=== PATIENT | female | born 1940 | race Caucasian/White ===

== ENCOUNTER 2017-03-21 13:19 | Inpatient (IN) | payer MEDICARE, OTHER ==
--- NOTE | 2017-03-21 13:41 | ED Physician Chart ---
ED Chief Complaint/HPI - Patient Information Date Seen:: 03/21/17 Time Seen:: 13:25 Chief Complaint:: altered level consciousness History of Present Illness:: Patient's had lethargy, cough, congestion, anorexia for the last 4 days. Her temperature was 100.3 4 days ago. Patient was hospitalized in February for pneumonia. Patient had resection of thoracic spine metastases from her lung carcinoma on January 17 and March 04, 2017. Lung carcinoma with bone metastases was diagnosed 12/11/2016. Allergies:: Allergies Allergy/AdvReac Type Severity Reaction Status Date / Time ibuprofen AdvReac Verified 03/21/17 13:27 Penicillins [PCN] AdvReac Verified 03/21/17 13:27 Historian:: Family Member Review:: Nurse's Note Reviewed, Transfer documents Reviewed ED Review of Systems - Review of Systems General/Constitutional: Fever Skin: No skin lesions Head: No headache Eyes: No loss of vision ENT: No earache Neck: No stiffness Cardio Vascular: No chest pain Pulmonary: No wheezing GI: No nausea, No vomiting, No diarrhea Musculoskeletal: Back pain Endocrine: No polyuria, No polydipsia Psychiatric: No prior psych history Hematopoietic: No bruising Allergic/Immuno: No urticaria ED Past Medical History - Past Medical History Past Medical History: Asthma/COPD, Other (rheumatoid arthritis) Family History: HTN Social History: No Alcohol, Other (patient quit smoking 20-25 years ago) Surgical History: other (see history) Psychiatricy History: None Medication: Reviewed ED Physical Exam - Physical Examination Other Gen/Cons comments:: Chronically ill-appearing; lethargic; barely verbal Head: Atraumatic Eyes: Lids, conjuctiva normal, PERRL Other Skin comments:: 3.5 out of 4 pitting edema dorsum of both hands; 2 out of 4 pretibial pitting edema; hypopigmentation skin lower legs ENMT: External ears, nose nl, Lips, teeth, gums nl Neck: No nuchal rigidity Respiratory: Nl effort/Exclusion, Clear to Auscultation Cardio Vascular: RRR, No murmur, gallop, rubs, NL S1 S2 GI: No tenderness/rebounding/guarding, No organomegaly, No hernia Other Extremities comments:: see under skin Neuro/Psych: No focal deficits ED Septic Shock - . Is Septic Shock (SBP<90, OR Lactate>4 mmol\L) present?: No
[2017-03-21 13:50] LABS: % BASOPHILS 0.5 % (0.0-2.0); % EOSINOPHILS 6.6 % (0.0-5.0); % LYMPHOCYTES 12.6 % (20.0-50.0); % MONOCYTES 9.1 % (2.0-10.0); % NEUTROPHILS 71.2 % (40.0-80.0); EOSINOPHILE ABSOLUTE 0.4 Th/cmm (0.1-0.4); HEMATOCRIT 30.6 % (41.0-60); LYMPHOCYTE ABSOLUTE 0.8 Th/cmm (1.5-3.0); MEAN CELL VOLUME 81.3 fl (81-100); MEAN CORPUSCULAR HEMOGLOBIN 26.7 pg (27.0-31.0); MEAN CORPUSCULAR HGB CONC 32.8 pg (28.0-36.0); MEAN PLATELET VOLUME 5.4 fl; MONOCYTE ABSOLUTE 0.5 Th/cmm (0.3-1.0); NEUTROPHILE ABSOLUTE 4.3 Th/cmm (1.8-8.0); PLATELET COUNT 270 Th/cmm (150-400); RED BLOOD COUNT 3.76 Mil/cmm (3.80-5.20); RED CELL DISTRIBUTION WIDTH 14.7 % (11.5-20.0)
[2017-03-21 14:23] LABS: ALBUMIN 2.8 gm/dL (3.7-5.3); ALKALINE PHOSPHATASE 88 U/L (34-104); BILIRUBIN,TOTAL 0.6 mg/dL (0.3-1.0); BUN - UREA NITROGEN 22 mg/dL (7-25); CHLORIDE 99 mEq/L (98-107); CREATININE - SERUM 0.9 mg/dL (0.6-1.2); GLUCOSE 92 mg/dL (70-105); SGOT 21 U/L (13-39); SGPT/ALT 9 U/L (7-52); SODIUM SERUM 136 mEq/L (136-145); TOTAL PROTEIN,SERUM 5.7 gm/dL (6.0-8.3)
--- NOTE | 2017-03-21 14:28 | Diagnostic Imaging Report ---
CHEST X-RAY: AP view INDICATION: Pneumonia COMPARISON: None FINDINGS: Exam is limited due to patient positioning. Postsurgical changes are noted including evidence of multilevel thoracic spinal fixation. Suboptimal lung volume seen with small effusions and left suprahilar density. Bibasal atelectatic changes are noted. Degenerative changes of the spine are noted. IMPRESSION: Left suprahilar density is noted which may be due to atelectasis infiltrate or other mass lesions. A follow-up chest x-ray with improved positioning or CT chest is recommended for further assessment Chronic changes are seen with atelectatic changes of the lung bases. Diffuse postsurgical changes of the thoracic spine.
--- NOTE | 2017-03-21 14:31 | Diagnostic Imaging Report ---
Head CT without intravenous contrast Indication: Altered level of consciousness Comparison: None Technique: Axial images were obtained from the vertex to the skull base without IV contrast. Coronal reconstructions were made. Total DLP: 729, [id number] FINDINGS: Images of the brain obtained without contrast demonstrate no acute hemorrhage. No mass lesions identified. The ventricles and basal cisterns are patent. Atrophy is noted. The negrete-white matter differentiation is preserved. There is no mass effect or midline shift. No skull fractures identified. No soft tissue swelling. There is diffuse mucosal thickening in the paranasal sinuses. IMPRESSION: No acute intracranial abnormality. Atrophy Diffuse mucosal thickening of the paranasal sinuses.
[2017-03-21] MEDS ORDERED: Potassium Chloride 20 mEq ER Tab PO ONE (15:40)
[2017-03-21 15:41] LABS: CALCIUM SERUM 16.8 mg/dL (8.6-10.3)
[2017-03-21] MEDS ORDERED: Potassium Chloride Elixir 20 mEq /15 mL UDC ONE (16:41)
[2017-03-21] MEDS ORDERED: guaiFENesin 200 MG/10 ML UDC PO PRN (17:25)
[2017-03-21] MEDS ORDERED: Ipratropium Neb 0.5 mg/2.5 mL UD IH PRN (17:25)
[2017-03-21] MEDS ORDERED: D5-0.45NS 1,000 ML IV SCH (17:30)
[2017-03-21] MEDS ORDERED: fentaNYL 50 mcg/hr Tdm Patch TD SCH (17:30)
[2017-03-21] MEDS ORDERED: Pamidronate 90 MG in Sodium Chloride 0.9% 250 ML IV ONE (17:30)
[2017-03-21] MEDS ORDERED: Albuterol/Ipratropium Neb 3 ML AERS HHN SCH (19:30)
[2017-03-21] MEDS: Sodium Chloride 0.9% 1,000 ML IV SCH (21:59)
[2017-03-21] MEDS: INSULIN ASPART, RECOMBINANT 100 UNITS/ML SUBQ SCH (22:31)
[2017-03-21] MEDS: Levofloxacin 500mg/100mL 500 MG/100 ML BAG IV SCH (23:19)
[2017-03-22 01:27] VITALS: BP 151/79
[2017-03-22 03:33] LABS: URINE MICROSCOPIC INDICATED? YES; URINE SOURCE FOLEY PORT
[2017-03-22 03:42] LABS: URINE BILIRUBIN NEGATIVE (NEGATIVE); URINE BLOOD SMALL (NEGATIVE); URINE GLUCOSE (UA) NEGATIVE (NEGATIVE); URINE KETONE NEGATIVE (NEGATIVE); URINE LEUKOCYTE ESTERASE TRACE (NEGATIVE); URINE NITRATE NEGATIVE (NEGATIVE); URINE PH 6.5 (4.6 - 8.0); URINE PROTEIN NEGATIVE (NEGATIVE); URINE UROBILINOGEN 0.2 E.U./dL (0.2 - 1.0)
[2017-03-22 04:30] LABS: URINE CLARITY CLEAR (CLEAR); URINE COLOR YELLOW
[2017-03-22 04:33] LABS: URINE BACTERIA FEW /hpf (NONE SEEN); URINE EPITHELIAL CELLS MODERATE /lpf (FEW); URINE YEAST MODERATE /hpf (NONE SEEN)
[2017-03-22] MEDS: Hydrocodone/APAP 5mg/325mg Tab PO PRN (06:30)
[2017-03-22] MEDS: INSULIN ASPART, RECOMBINANT 100 UNITS/ML SUBQ SCH ×4 (06:42→20:45)
[2017-03-22 07:11] LABS: % BASOPHILS 1.8 % (0.0-2.0); % EOSINOPHILS 5.9 % (0.0-5.0); % LYMPHOCYTES 14.5 % (20.0-50.0); % MONOCYTES 10.9 % (2.0-10.0); % NEUTROPHILS 66.9 % (40.0-80.0); BASOPHILE ABSOLUTE 0.1 Th/cumm (0-0.2); EOSINOPHILE ABSOLUTE 0.3 Th/cmm (0.1-0.4); HEMOGLOBIN 8.4 gm/dL (12-16); LYMPHOCYTE ABSOLUTE 0.8 Th/cmm (1.5-3.0); MEAN CELL VOLUME 82.2 fl (81-100); MEAN CORPUSCULAR HEMOGLOBIN 27.3 pg (27.0-31.0); MEAN CORPUSCULAR HGB CONC 33.2 pg (28.0-36.0); MEAN PLATELET VOLUME 6.8 fl; MONOCYTE ABSOLUTE 0.6 Th/cmm (0.3-1.0); NEUTROPHILE ABSOLUTE 3.9 Th/cmm (1.8-8.0); RED BLOOD COUNT 3.08 Mil/cmm (3.80-5.20); RED CELL DISTRIBUTION WIDTH 15.1 % (11.5-20.0); WHITE BLOOD COUNT 5.7 Th/cmm (4.8-10.8)
[2017-03-22 07:17] LABS: HEMATOCRIT 25.3 % (41.0-60); PLATELET COUNT 198 Th/cmm (150-400)
[2017-03-22] MEDS: Albuterol/Ipratropium Neb 3 ML AERS HHN SCH ×4 (07:31→19:04)
[2017-03-22] MEDS: Budesonide 0.5 Mg/2 mL Ud HHN SCH ×2 (07:31→19:13)
--- NOTE | 2017-03-22 08:22 | Diagnostic Imaging Report ---
CT scan of the chest without contrast HISTORY: Mass. Total DLP equals 285 CTDI equals 8.0 Axial sections were obtained from the base of the skull to the vertex. Exam is somewhat limited due to artifact associated with metallic orthopedic hardware traversing the thoracic spine. The heart is enlarged. There are small bilateral pleural effusions. Pulmonary parenchymal density noted within the right left lower lobe regions suggestion of volume loss consistent with atelectasis and possibly consolidation. Calcified bronchial jane noted. There is obscuration of the left lower lobe bronchus. There is congestion of an approximate 3.3 cm irregular mass within the left upper lobe. Malignancy cannot be excluded. Follow-up needed. IMPRESSION: 1. Suggestion of an approximate 3.3 cm mass within the left upper lobe. Neoplasm cannot be excluded. 2. Cardiomegaly along with small bilateral pleural effusions. A degree of congestive heart failure cannot be excluded. 3. Bilateral lower lobe pulmonary parenchymal changes consistent with consolidation and/or atelectasis. Obscuration of the left lower lobe bronchus. 4. Extensive surgical changes through the thoracic spine.
[2017-03-22 08:59] LABS: ALBUMIN 2.4 gm/dL (3.7-5.3); ALKALINE PHOSPHATASE 68 U/L (34-104); ANION GAP 5.3 (7.0-16.0); BILIRUBIN,TOTAL 0.4 mg/dL (0.3-1.0); BUN - UREA NITROGEN 22 mg/dL (7-25); CARBON DIOXIDE 31.9 mEq/L (21.0-31.0); CHLORIDE 104 mEq/L (98-107); CREATININE - SERUM 0.8 mg/dL (0.6-1.2); GLUCOSE 81 mg/dL (70-105); MAGNESIUM 1.6 mg/dL (1.9-2.7); PHOSPHOROUS 3.1 mg/dL (2.5-5.0); POTASSIUM SERUM 3.2 mEq/L (3.5-5.1); SGOT 18 U/L (13-39); SGPT/ALT 6 U/L (7-52); SODIUM SERUM 138 mEq/L (136-145); TOTAL PROTEIN,SERUM 4.9 gm/dL (6.0-8.3)
[2017-03-22] MEDS ORDERED: Pantoprazole 40 mg EC Tab PO SCH (09:00)
[2017-03-22] MEDS ORDERED: Non-Formulary Item 1 EA (Apixaban [Eliquis] 5 MG) PO SCH (09:00)
[2017-03-22 09:19] LABS: ALLEN TEST YES; pH 7.47 (7.35-7.45)
[2017-03-22] MEDS: Sodium Chloride 0.9% 1,000 ML IV SCH (09:26)
[2017-03-22] MEDS: Multivitamin w/ Minerals Tab PO SCH (09:26)
[2017-03-22] MEDS: Ferrous Sulfate 325 MG TAB PO SCH (09:26)
[2017-03-22] MEDS: Enoxaparin 40 mg/0.4 mL 0.4mL Syr SUBQ SCH (11:21)
[2017-03-22] MEDS ORDERED: Pamidronate 90 MG in Sodium Chloride 0.9% 250 ML IV ONE (13:00)
[2017-03-22] MEDS ORDERED: Mag Sulfate 2gm/50mL Premix 2 GM/50 ML BAG IV ONE (14:00)
--- NOTE | 2017-03-22 14:19 | Internal Medicine Prog Note ---
Internal Medicine Subjective - Subjective Service Date: 03/22/17 ([facility] [id number]) Internal Medicine Objective - Results Result Diagrams: 03/22/17 05:20 03/22/17 05:20 Recent Labs: Laboratory Last Values WBC 5.7 Th/cmm (4.8-10.8) 03/22/17 05:20 RBC 3.08 Mil/cmm (3.80-5.20) L 03/22/17 05:20 Hgb 8.4 gm/dL (12-16) L 03/22/17 05:20 Hct 25.3 % (41.0-60) L D 03/22/17 05:20 MCV 82.2 fl (81-100) 03/22/17 05:20 MCH 27.3 pg (27.0-31.0) 03/22/17 05:20 MCHC Differential 33.2 pg (28.0-36.0) 03/22/17 05:20 RDW 15.1 % (11.5-20.0) 03/22/17 05:20 Plt Count 198 Th/cmm (150-400) D 03/22/17 05:20 MPV 6.8 fl 03/22/17 05:20 Neutrophils % 66.9 % (40.0-80.0) 03/22/17 05:20 Lymphocytes % 14.5 % (20.0-50.0) L 03/22/17 05:20 Monocytes % 10.9 % (2.0-10.0) H 03/22/17 05:20 Eosinophils % 5.9 % (0.0-5.0) H 03/22/17 05:20 Basophils % 1.8 % (0.0-2.0) 03/22/17 05:20 Specimen Source Arterial 03/22/17 09:10 Sample Site Right Radial 03/22/17 09:10 pH 7.47 (7.35-7.45) H 03/22/17 09:10 pCO2 46.0 mmHg (35.0-45.0) H 03/22/17 09:10 pO2 66.0 mmHg (80.0-100.0) L 03/22/17 09:10 HCO3 31.6 mEq/L (20.0-26.0) H 03/22/17 09:10 Base Excess 8.7 mEq/L (-3.0-3.0) H 03/22/17 09:10 O2 Saturation 94.0 % (92.0-100.0) 03/22/17 09:10 Dennis Test YES 03/22/17 09:10 Vent Rate NA 03/22/17 09:10 Inspired O2 35 03/22/17 09:10 Tidal Volume NA 03/22/17 09:10 PEEP NA 03/22/17 09:10 Pressure (ins/psv/peep) NA 03/22/17 09:10 Critical Value E.NATHAN 03/22/17 09:10 Sodium 138 mEq/L (136-145) 03/22/17 05:20 Potassium 3.2 mEq/L (3.5-5.1) L 03/22/17 05:20 Chloride 104 mEq/L (98-107) 03/22/17 05:20 Carbon Dioxide 31.9 mEq/L (21.0-31.0) H 03/22/17 05:20 Anion Gap 5.3 (7.0-16.0) L 03/22/17 05:20 BUN 22 mg/dL (7-25) 03/22/17 05:20 Creatinine 0.8 mg/dL (0.6-1.2) 03/22/17 05:20 Est GFR ( Amer) TNP 03/22/17 05:20 Est GFR (Non-Af Amer) TNP 03/22/17 05:20 BUN/Creatinine Ratio 27.5 03/22/17 05:20 Glucose 81 mg/dL (70-105) 03/22/17 05:20 POC Glucose 83 MG/DL (70 - 105) 03/22/17 13:01 Calcium 16.0 mg/dL (8.6-10.3) H* 03/22/17 05:20 Phosphorus 3.1 mg/dL (2.5-5.0) 03/22/17 05:20 Magnesium 1.6 mg/dL (1.9-2.7) L 03/22/17 05:20 Total Bilirubin 0.4 mg/dL (0.3-1.0) 03/22/17 05:20 Direct Bilirubin 0.10 mg/dL (0.0-0.2) 03/22/17 05:20 AST 18 U/L (13-39) 03/22/17 05:20 ALT 6 U/L (7-52) L 03/22/17 05:20 Alkaline Phosphatase 68 U/L (34-104) 03/22/17 05:20 Ammonia 57 umol/L (16-53) H 03/22/17 05:20 B-Natriuretic Peptide 181.0 pg/mL (5.0-100.0) H 03/22/17 05:20 Total Protein 4.9 gm/dL (6.0-8.3) L 03/22/17 05:20 Albumin 2.4 gm/dL (3.7-5.3) L 03/22/17 05:20 Globulin 2.5 gm/dL 03/22/17 05:20 Albumin/Globulin Ratio 1.0 (1.0-1.8) 03/22/17 05:20 TSH 2.14 uIU/ml (0.34-5.60) 03/22/17 05:20 Urine Source [place] 03/22/17 03:20 Urine Color YELLOW 03/22/17 03:20 Urine Clarity CLEAR (CLEAR) 03/22/17 03:20 Urine pH 6.5 (4.6 - 8.0) 03/22/17 03:20 Ur Specific [place] 1.010 (1.005-1.030) 03/22/17 03:20 Urine Protein NEGATIVE mg/dL (NEGATIVE) 03/22/17 03:20 Urine Glucose (UA) NEGATIVE mg/dL (NEGATIVE) 03/22/17 03:20 Urine Ketones NEGATIVE mg/dL (NEGATIVE) 03/22/17 03:20 Urine Blood SMALL (NEGATIVE) H 03/22/17 03:20 Urine Nitrate NEGATIVE (NEGATIVE) 03/22/17 03:20 Urine Bilirubin NEGATIVE (NEGATIVE) 03/22/17 03:20 Urine Urobilinogen 0.2 E.U./dL (0.2 - 1.0) 03/22/17 03:20 Ur Leukocyte Esterase TRACE (NEGATIVE) H 03/22/17 03:20 Urine RBC 2-5 /hpf (0-5) 03/22/17 03:20 Urine WBC 2-5 /hpf (0-5) 03/22/17 03:20 Ur Epithelial Cells MODERATE /lpf (FEW) 03/22/17 03:20 Urine Bacteria FEW /hpf (NONE SEEN) 03/22/17 03:20 Urine Yeast MODERATE /hpf (NONE SEEN) H 03/22/17 03:20 - Physical Exam Vitals and I&O: Vital Signs Temp 98.7 F 03/22/17 01:55 Pulse 70 03/22/17 13:45 Resp 18 03/22/17 13:45 BP 147/70 03/22/17 10:26 Pulse Ox 95 03/22/17 13:45 Intake & Output 03/21/17 03/22/17 03/22/17 18:59 06:59 18:59 Intake Total 50 1050 Output Total 1150 Balance 50 -100 Weight (lbs) 140 lb 140 lb Intake: Intake, IV Amount 50 1050 Cefepime 1 gm In Dextrose 50 50 5% 50 ml @ 100 mls/hr IV Q12H [facility] Rx#:[id number] Sodium Chloride 0.9% 1, 1000 000 ml @ 125 mls/hr IV . Q8H [facility] Rx#:[id number] Output: Urine 1150 Other: # Bowel Movements 0 Active Medications: Current Medications Acetaminophen (Tylenol) 650 mg PO Q4H PRN PRN Reason: Pain Or Fever above 101 Stop: 05/20/17 17:24 Acetaminophen/Hydrocodone Bitart ([place] 5mg/325mg) 1 tab PO Q4H PRN PRN Reason: Pain (Severe) Stop: 05/20/17 17:24 Last Admin: 03/22/17 06:30 Dose: 1 tab Albuterol/Ipratropium (Duoneb Neb) 3 ml HHN [id number] [facility] Stop: 05/21/17 06:59 Last Admin: 03/22/17 13:43 Dose: 3 ml Budesonide (Pulmicort) 0.5 mg HHN BIDRT [facility] Stop: 05/21/17 06:59 Last Admin: 03/22/17 07:31 Dose: 0.5 mg Docusate Sodium (Colace) 250 mg PO DAILY [facility] Stop: 05/21/17 08:59 Last Admin: 03/22/17 09:26 Dose: 250 mg Enoxaparin Sodium (Lovenox) 40 mg SUBQ DAILY [facility] Stop: 05/21/17 08:59 Last Admin: 03/22/17 11:21 Dose: 40 mg Fentanyl (Duragesic 50 Mcg/Hr Tdm Patch) 1 patch TD Q72HR [facility] PRN Reason: Protocol Stop: 05/20/17 17:29 Ferrous Sulfate (Iron) 325 mg PO DAILY [facility] Stop: 05/21/17 08:59 Last Admin: 03/22/17 09:26 Dose: 325 mg Gabapentin (Neurontin) 400 mg PO TID [facility] Stop: 05/20/17 20:59 Last Admin: 03/22/17 10:00 Dose: 400 mg Guaifenesin (Robitussin) 200 mg PO Q4HR PRN PRN Reason: Cough or Congestion Stop: 05/20/17 17:24 Cefepime HCl 1 gm/ Dextrose 50 mls @ 100 mls/hr IV Q12H [facility] Stop: 05/20/17 17:29 Last Infusion: 03/22/17 11:25 Dose: Infused Levofloxacin (Levaquin Pb) 500 mg in 100 mls @ 100 mls/hr IV Q24HR [facility] Stop: 05/20/17 19:29 Last Admin: 03/21/17 23:19 Dose: 100 mls/hr Sodium Chloride (Nacl 0.9%) 1,000 mls @ 125 mls/hr IV .Q8H [facility] Stop: 05/20/17 20:17 Last Admin: 03/22/17 09:26 Dose: 125 mls/hr Pamidronate Disodium 90 mg/ (Sodium Chloride) 280 mls @ 62 mls/hr IV X1 ONE Stop: 03/22/17 17:30 Last Admin: 03/22/17 13:02 Dose: 62 mls/hr Potassium Chloride 40 meq/Lidocaine HCl 25 mg/ Sodium Chloride 272.5 mls @ 68 mls/hr IV X1 ONE Stop: 03/22/17 18:30 Magnesium Sulfate (Magnesium Sulfate Premix) 2 gm in 50 mls @ 25 mls/hr IV X1 ONE Stop: 03/22/17 15:59 Insulin Aspart (Novolog) 0 units SUBQ ACHS [facility] PRN Reason: Protocol Stop: 05/20/17 20:59 Last Admin: 03/22/17 13:01 Dose: Not Given Ipratropium [place] (Atrovent Neb 0.5mg/2.5ml) 0.5 mg IH Q2HRT PRN PRN Reason: Shortness of Breath or Wheeze Stop: 05/20/17 17:24 Ondansetron HCl (Zofran) 4 mg IV Q8H PRN PRN Reason: Nausea / Vomiting Stop: 05/20/17 17:24 Pantoprazole Sodium (Protonix) 40 mg PO DAILY [facility] Stop: 05/21/17 08:59 Last Admin: 03/22/17 09:26 Dose: 40 mg Senna (Senna) 8.6 mg PO DAILY [facility] Stop: 05/21/17 08:59 Last Admin: 03/22/17 09:26 Dose: 8.6 mg Internal Medicine Assmt/Plan - Assessment Assessment: Acute respiratory failure possible sepsis Lung CA hypercalcemia severe protein nancy maltnutrition dnr status
[2017-03-22] MEDS ORDERED: Potassium Chloride 40 MEQ, Lidocaine 1% 20mL Vial 25 MG in Sodium Chloride 0.9% 250 ML IV ONE (14:30)
--- NOTE | 2017-03-22 14:47 | Consultation ---
DATE OF CONSULTATION: HEMATOLOGY AND ONCOLOGY CONSULTATION REFERRED BY: Cecil Lopes D.O. REASON FOR CONSULTATION: Lung cancer, metastatic and hypercalcemia. HISTORY OF PRESENT ILLNESS: The patient is a 76-year-old female with metastatic lung cancer to the spine. Apparently, she presented initially in 11/2016 with severe back pain and found to have spinal compression and underwent laminectomy at level T5 and given radiation therapy, which was interrupted because of severe pain. The patient was intubated after that and extubated on 02/27/2017. She is presenting to the hospital with altered mental status and found to have severe hypercalcemia, calcium 16. Pamidronate was ordered, but it was not given because it was not available. I had a discussion with nurse and pharmacy this morning and the medication was reordered again. The patient had cholangiocarcinoma with spinal metastasis and the tumor was resected and they re-grew after that. Apparently, the patient received one chemotherapy about 2 months ago, per the patient's friend at bedside and the name of chemotherapy is unknown. The patient was discharged from the [facility] on 03/06/2017 on Eliquis 5 mg, gabapentin, Cymbalta, omeprazole, lactulose, baclofen, Lidoderm. CURRENT MEDICATIONS: Cefepime, clonidine, fentanyl, gabapentin, [place], ipratropium, Levaquin, pantoprazole, potassium. She is also on IV fluids 125 mL per hour. MEDICAL AND SURGICAL HISTORY: As mentioned above. PHYSICAL EXAMINATION: GENERAL: The patient is alert, unable to carry on a conversation. She is unable to swallow food. She is pooling food in her mouth and the medications. Disoriented. NECK: Supple. CHEST: Equal air entry. There is a dressing on the back. No bleeding. ABDOMEN: Soft. EXTREMITIES: Moves upper extremities spontaneously, not moving lower extremities. The muscle power on both lower extremities is decreased. Right lower extremity is 0/5 and left lower extremity is 1/5. LABORATORY DATA AND DIAGNOSTIC STUDIES: White count and platelets are normal, hemoglobin 8.4. Potassium 3.2, calcium 16, creatinine 0.8. CT scan of the chest, left upper lobe mass with extensive surgical changes in the spine. Head CT, no acute abnormalities. There are also bilateral lower lobe parenchymal changes. ASSESSMENT: 1. 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 The patient is now paraplegic. 2. Hypercalcemia of malignancy. I will obtain parathyroid hormone and I tried to order zoledronic acid, but it is not on formulary; therefore, I will proceed with pamidronate 90 mg in addition to vigorous hydration and Decadron. I will also start deep vein thrombosis prophylaxis because of the paraplegia. The overall prognosis is very poor. I will monitor the chemistry and calcium closely. Thank you, Dr. Lopes for the opportunity to participate in the care of this interesting case. JOB# [id number]
--- NOTE | 2017-03-22 19:01 | History & Physical ---
ADMIT DATE: 03/21/2017 CHIEF COMPLAINT: ALOC. HISTORY OF PRESENT ILLNESS: This is a 76-year-old female who is a [place] [facility] resident, with a 4-day history of cough, congestion and anorexia for 4 days. The patient had a low grade fever of 100.3. The patient was recently hospitalized in February for pneumonia. The patient recently also had a resection of her thoracic spine, metastasis from her lung carcinoma on 01/17/2017 and 03/04/2017. PAST MEDICAL HISTORY: Asthma, COPD, rheumatoid arthritis, lung carcinoma with bone metastasis diagnosed on 12/11/2016. SURGICAL HISTORY: Resection of thoracic spine, metastasis from lung carcinoma. SOCIAL HISTORY: The patient is a former smoker. ALLERGIES: IBUPROFEN, PENICILLIN. REVIEW OF SYSTEMS: GENERAL: Denies fevers, chills. CARDIOVASCULAR: Denies chest pain. RESPIRATORY: Denies shortness of breath. GASTROINTESTINAL: Denies nausea, vomiting, abdominal pain. GENITOURINARY: Denies increased frequency or dysuria. NEUROLOGIC: No headaches, seizures or syncope. PSYCHIATRIC: As stated above. EXTREMITIES: No leg pain or swelling. All other systems are reviewed and are negative. PHYSICAL EXAMINATION: GENERAL: The patient appears chronically ill, awake, in no apparent distress. VITAL SIGNS: Temperature 98.7, heart rate 90, blood pressure 151/79, respiration 18, O2 95%. HEENT: Head, normocephalic, atraumatic. NECK: Supple. No mass. LUNGS: Few rhonchi. HEART: Regular rate and rhythm. ABDOMEN: Soft, nontender. LABORATORY DATA: WBC 5.7, H and H 8.4 and 25.3, platelet of 198. Sodium 138, potassium 3.2, chloride 104, BUN 22, creatinine 0.8. Calcium 6.0. Ammonia level 57. Albumin of 2.4. The patient had a chest x-ray done and the impression is left suprahilar density is noted which may be due to atelectasis, infiltrate or other mass lesions. A followup chest x-ray with improved positioning or CT chest is recommended for further assessment. Chronic changes are seen with atelectatic changes in the lung bases, diffuse postsurgical changes of the thoracic spine. A CT of the head was also done and the impression is no acute intracranial abnormality, atrophy, diffuse mucosal thickening of the paranasal sinuses. Also, CT of the chest was also done and the impression is suggestion of an approximate 3.3 cm mass within the left upper lobe, neoplasm cannot be excluded, cardiomegaly along with small bilateral pleural effusions with degrees of CHF cannot be excluded. Bilateral lower lobe pulmonary will changes consistent with consolidation and/or atelectasis. Obscuration of the left lower bronchus. Extensive surgical changes to the thoracic spine. ASSESSMENT: Acute respiratory failure, possible sepsis, lung cancer, hypercalcemia, severe protein-calorie malnutrition, anemia. PLAN: The patient to be admitted to the Telemetry unit. We will get Pulmonology as well as pbx operator on the case. We will get wound consultation as well. Keep patient on IV fluids for hydration also, IV antibiotics of Maxipime as well as supplemental oxygen as needed, as well as bronchodilators. We will continue to monitor this patient. JOB# [id number]
--- NOTE | 2017-03-22 21:38 | Consultation ---
DATE OF CONSULTATION: 03/21/2017 PULMONARY AND CRITICAL CARE CONSULTATION NOTE REASON FOR CONSULTATION: The patient with chronic lung condition with altered state of mind. CONSULT NOTE: This is a 76-year-old female who was diagnosed to have lung cancer in 3-4 months ago. Subsequently, was treated and apparently the patient was at [facility]. Subsequently, the patient had 2 times decompression surgical history presumably spread from cancer into the supine as back as couple of weeks ago. Subsequently, the patient was at rehab at [place] and since last 3-4 days the patient has been quite obtunded, not able to eat, spitting it out, and continues to have significant altered state of mind. Hence, the patient was basically admitted and brought to the Emergency Room for further care and necessary treatment. The patient is barely arousable, very minimal opening his eyes to verbal stimulation, but otherwise no communication could be done. Most of the communication is obtained by talking to her grandson who gives much of her history. The patient has a history of very heavy smoking, was diagnosed to have a lung carcinoma by needle biopsy; subsequently was treated, but also at the same time x 2 had spinal cord compression, once it was at [facility] and also she was at [facility] a couple of weeks ago where she had some decompression, surgery was done, and was in the [facility] for further care and necessary treatment. The patient's other history at this particular time is not available. The patient has a history of COPD, otherwise history of spine metastasis from the lung, exact type is not clear; and also history of previous asthmatic bronchitis. Smoking history is very heavy could not be quantified, history of rheumatoid arthritis, and otherwise unremarkable. PHYSICAL EXAMINATION: GENERAL: This is an elderly looking female, barely opens eyes, not in acute respiratory distress. VITAL SIGNS: The patient's recorded vitals, temperature is 99, pulse is 98, blood pressure 149/63, respirations 19, and saturation 90% on 3 liters per minute. HEENT: Examination of the head is essentially unremarkable. Pupils appear to be equal and reacting to light. Conjunctivae are slightly pallor. Oral cavity shows dry mouth with poor dental hygiene and oral cavity is small oropharyngeal opening. NECK: Short. No nodes in the neck could be palpated. CHEST: Shows diminished air entry with occasional rhonchi. HEART: Regular. ABDOMEN: Soft, nontender. EXTREMITIES: Shows slight trace of peripheral edema. LABORATORY DATA: The patient's white count is 6.0 and hemoglobin is 10 grams. Electrolytes are okay except for calcium is 16.8 and albumin is 2.8. ASSESSMENT AND IMPRESSION: 1. The patient has a carcinoma of the lung with metastasis to multiple areas, though type is not clear-cut with x 2 times compression of the spinal cord done. 2. Significant hypercalcemia, probably due to above. 3. Underlying history of chronic obstructive pulmonary disease. 4. History of severe anemia. PLANS AND SUGGESTIONS: Discussed with the patient's family at length. Consideration for no code should be done. We will go ahead and replaced with sodium chloride IV and also we will got empiric antibiotic. We will give steroid to bring the calcium down and see how she does in the next 24-48 hours. Family understands her condition and grave situation and a terminal situation. We will discuss with the family members to get ____ that was highly recommended and we will see how she does in the next 24 hours and go from there. JOB# [id number]
[2017-03-23] MEDS: Levofloxacin 500mg/100mL 500 MG/100 ML BAG IV SCH (00:48)
[2017-03-23] MEDS: Sodium Chloride 0.9% 1,000 ML IV SCH ×2 (04:59→12:30)
[2017-03-23 06:31] LABS: % BASOPHILS 0.6 % (0.0-2.0); % LYMPHOCYTES 10.9 % (20.0-50.0); % MONOCYTES 8.7 % (2.0-10.0); % NEUTROPHILS 77.8 % (40.0-80.0); EOSINOPHILE ABSOLUTE 0.1 Th/cmm (0.1-0.4); HEMATOCRIT 27.7 % (41.0-60); LYMPHOCYTE ABSOLUTE 0.7 Th/cmm (1.5-3.0); MEAN CELL VOLUME 81.6 fl (81-100); MEAN CORPUSCULAR HEMOGLOBIN 26.6 pg (27.0-31.0); MEAN CORPUSCULAR HGB CONC 32.6 pg (28.0-36.0); MEAN PLATELET VOLUME 6.3 fl; MONOCYTE ABSOLUTE 0.6 Th/cmm (0.3-1.0); NEUTROPHILE ABSOLUTE 5.2 Th/cmm (1.8-8.0); PLATELET COUNT 228 Th/cmm (150-400); WHITE BLOOD COUNT 6.6 Th/cmm (4.8-10.8)
[2017-03-23 06:51] LABS: ANION GAP 8.2 (7.0-16.0); BUN - UREA NITROGEN 23 mg/dL (7-25); CHLORIDE 108 mEq/L (98-107); CREATININE - SERUM 0.8 mg/dL (0.6-1.2); GLUCOSE 105 mg/dL (70-105); POTASSIUM SERUM 3.2 mEq/L (3.5-5.1); SODIUM SERUM 142 mEq/L (136-145)
[2017-03-23] MEDS: INSULIN ASPART, RECOMBINANT 100 UNITS/ML SUBQ SCH ×4 (07:17→21:51)
[2017-03-23 07:20] LABS: CALCIUM SERUM 16.1 mg/dL (8.6-10.3)
[2017-03-23] MEDS: Albuterol/Ipratropium Neb 3 ML AERS HHN SCH ×4 (07:58→19:18)
[2017-03-23] MEDS: Budesonide 0.5 Mg/2 mL Ud HHN SCH ×2 (07:58→19:18)
[2017-03-23] MEDS ORDERED: Potassium Chloride 40 MEQ, Lidocaine 1% 20mL Vial 25 MG in Sodium Chloride 0.9% 250 ML IV ONE (08:44)
[2017-03-23] MEDS: Multivitamin w/ Minerals Tab PO SCH (09:04)
[2017-03-23] MEDS: Ferrous Sulfate 325 MG TAB PO SCH (09:04)
[2017-03-23] MEDS: Enoxaparin 40 mg/0.4 mL 0.4mL Syr SUBQ SCH (09:04)
[2017-03-23] MEDS ORDERED: fentaNYL 50 mcg/hr Tdm Patch TD SCH ×2 (10:15→10:30)
--- NOTE | 2017-03-23 12:06 | Internal Medicine Prog Note ---
Internal Medicine Subjective - Subjective Service Date: 03/23/17 Patient seen and examined:: with staff Patient is:: awake Patient Complaints of:: congestion Per staff patient has:: poor appetite, poor oral intake Internal Medicine Objective - Results Result Diagrams: 03/23/17 06:05 03/23/17 06:05 Recent Labs: Laboratory Last Values WBC 6.6 Th/cmm (4.8-10.8) 03/23/17 06:05 RBC 3.40 Mil/cmm (3.80-5.20) L 03/23/17 06:05 Hgb 9.0 gm/dL (12-16) L 03/23/17 06:05 Hct 27.7 % (41.0-60) L 03/23/17 06:05 MCV 81.6 fl (81-100) 03/23/17 06:05 MCH 26.6 pg (27.0-31.0) L 03/23/17 06:05 MCHC Differential 32.6 pg (28.0-36.0) 03/23/17 06:05 RDW 15.0 % (11.5-20.0) 03/23/17 06:05 Plt Count 228 Th/cmm (150-400) 03/23/17 06:05 MPV 6.3 fl 03/23/17 06:05 Neutrophils % 77.8 % (40.0-80.0) 03/23/17 06:05 Lymphocytes % 10.9 % (20.0-50.0) L 03/23/17 06:05 Monocytes % 8.7 % (2.0-10.0) 03/23/17 06:05 Eosinophils % 2.0 % (0.0-5.0) 03/23/17 06:05 Basophils % 0.6 % (0.0-2.0) 03/23/17 06:05 Specimen Source Arterial 03/22/17 09:10 Sample Site Right Radial 03/22/17 09:10 pH 7.47 (7.35-7.45) H 03/22/17 09:10 pCO2 46.0 mmHg (35.0-45.0) H 03/22/17 09:10 pO2 66.0 mmHg (80.0-100.0) L 03/22/17 09:10 HCO3 31.6 mEq/L (20.0-26.0) H 03/22/17 09:10 Base Excess 8.7 mEq/L (-3.0-3.0) H 03/22/17 09:10 O2 Saturation 94.0 % (92.0-100.0) 03/22/17 09:10 Dennis Test YES 03/22/17 09:10 Vent Rate NA 03/22/17 09:10 Inspired O2 35 03/22/17 09:10 Tidal Volume NA 03/22/17 09:10 PEEP NA 03/22/17 09:10 Pressure (ins/psv/peep) NA 03/22/17 09:10 Critical Value E.NATHAN 03/22/17 09:10 Sodium 142 mEq/L (136-145) 03/23/17 06:05 Potassium 3.2 mEq/L (3.5-5.1) L 03/23/17 06:05 Chloride 108 mEq/L (98-107) H 03/23/17 06:05 Carbon Dioxide 29.0 mEq/L (21.0-31.0) 03/23/17 06:05 Anion Gap 8.2 (7.0-16.0) 03/23/17 06:05 BUN 23 mg/dL (7-25) 03/23/17 06:05 Creatinine 0.8 mg/dL (0.6-1.2) 03/23/17 06:05 Est GFR ( Amer) TNP 03/23/17 06:05 Est GFR (Non-Af Amer) TNP 03/23/17 06:05 BUN/Creatinine Ratio 28.8 03/23/17 06:05 Glucose 105 mg/dL (70-105) 03/23/17 06:05 POC Glucose 94 MG/DL (70 - 105) 03/23/17 07:11 Calcium 16.1 mg/dL (8.6-10.3) H* 03/23/17 06:05 Phosphorus 3.1 mg/dL (2.5-5.0) 03/22/17 05:20 Magnesium 1.6 mg/dL (1.9-2.7) L 03/22/17 05:20 Total Bilirubin 0.4 mg/dL (0.3-1.0) 03/22/17 05:20 Direct Bilirubin 0.10 mg/dL (0.0-0.2) 03/22/17 05:20 AST 18 U/L (13-39) 03/22/17 05:20 ALT 6 U/L (7-52) L 03/22/17 05:20 Alkaline Phosphatase 68 U/L (34-104) 03/22/17 05:20 Ammonia 57 umol/L (16-53) H 03/22/17 05:20 B-Natriuretic Peptide 181.0 pg/mL (5.0-100.0) H 03/22/17 05:20 Total Protein 4.9 gm/dL (6.0-8.3) L 03/22/17 05:20 Albumin 2.4 gm/dL (3.7-5.3) L 03/22/17 05:20 Globulin 2.5 gm/dL 03/22/17 05:20 Albumin/Globulin Ratio 1.0 (1.0-1.8) 03/22/17 05:20 TSH 2.14 uIU/ml (0.34-5.60) 03/22/17 05:20 Urine Source [place] 03/22/17 03:20 Urine Color YELLOW 03/22/17 03:20 Urine Clarity CLEAR (CLEAR) 03/22/17 03:20 Urine pH 6.5 (4.6 - 8.0) 03/22/17 03:20 Ur Specific [place] 1.010 (1.005-1.030) 03/22/17 03:20 Urine Protein NEGATIVE mg/dL (NEGATIVE) 03/22/17 03:20 Urine Glucose (UA) NEGATIVE mg/dL (NEGATIVE) 03/22/17 03:20 Urine Ketones NEGATIVE mg/dL (NEGATIVE) 03/22/17 03:20 Urine Blood SMALL (NEGATIVE) H 03/22/17 03:20 Urine Nitrate NEGATIVE (NEGATIVE) 03/22/17 03:20 Urine Bilirubin NEGATIVE (NEGATIVE) 03/22/17 03:20 Urine Urobilinogen 0.2 E.U./dL (0.2 - 1.0) 03/22/17 03:20 Ur Leukocyte Esterase TRACE (NEGATIVE) H 03/22/17 03:20 Urine RBC 2-5 /hpf (0-5) 03/22/17 03:20 Urine WBC 2-5 /hpf (0-5) 03/22/17 03:20 Ur Epithelial Cells MODERATE /lpf (FEW) 03/22/17 03:20 Urine Bacteria FEW /hpf (NONE SEEN) 03/22/17 03:20 Urine Yeast MODERATE /hpf (NONE SEEN) H 03/22/17 03:20 - Physical Exam Vitals and I&O: Vital Signs Temp 97.2 F 03/23/17 11:38 Pulse 81 03/23/17 11:38 Resp 18 03/23/17 11:38 BP 159/69 03/23/17 11:38 Pulse Ox 97 03/23/17 11:38 Intake & Output 03/22/17 03/23/17 03/23/17 18:59 06:59 18:59 Intake Total 2050 350 Output Total 1150 600 Balance 900 -250 Weight (lbs) 140 lb 140 lb 140 lb Intake: Intake, IV Amount 0 100 Cefepime 1 gm In Dextrose 50 5% 50 ml @ 100 mls/hr IV Q12H [facility] Rx#:[id number] Levofloxacin 500mg/100mL 100 500 mg In 100 ml @ 100 mls/hr IV Q24HR [facility] Rx#: [id number] Sodium Chloride 0.9% 1, 2000 000 ml @ 125 mls/hr IV . Q8H [facility] Rx#:[id number] Oral 150 Other 100 Output: Urine 1150 600 Other: # Bowel Movements 0 0 Active Medications: Current Medications Acetaminophen (Tylenol) 650 mg PO Q4H PRN PRN Reason: Pain Or Fever above 101 Stop: 05/20/17 17:24 Last Admin: 03/22/17 21:54 Dose: 650 mg Acetaminophen/Hydrocodone Bitart ([place] 5mg/325mg) 1 tab PO Q4H PRN PRN Reason: Pain (Severe) Stop: 05/20/17 17:24 Last Admin: 03/22/17 06:30 Dose: 1 tab Albuterol/Ipratropium (Duoneb Neb) 3 ml HHN [id number] [facility] Stop: 05/21/17 06:59 Last Admin: 03/23/17 07:58 Dose: 3 ml Budesonide (Pulmicort) 0.5 mg HHN BIDRT [facility] Stop: 05/21/17 06:59 Last Admin: 03/23/17 07:58 Dose: 0.5 mg Docusate Sodium (Colace) 250 mg PO DAILY [facility] Stop: 05/21/17 08:59 Last Admin: 03/23/17 09:04 Dose: 250 mg Enalaprilat (Vasotec) 1.25 mg IVP Q6HR PRN PRN Reason: SBP >180 AND UP Stop: 05/22/17 08:29 Enoxaparin Sodium (Lovenox) 40 mg SUBQ DAILY [facility] Stop: 05/21/17 08:59 Last Admin: 03/23/17 09:04 Dose: 40 mg Fentanyl (Duragesic 50 Mcg/Hr Tdm Patch) 1 patch TD Q72H [facility] Stop: 05/22/17 10:29 Last Admin: 03/23/17 10:54 Dose: 1 patch Ferrous Sulfate (Iron) 325 mg PO DAILY [facility] Stop: 05/21/17 08:59 Last Admin: 03/23/17 09:04 Dose: 325 mg Gabapentin (Neurontin) 400 mg PO TID [facility] Stop: 05/20/17 20:59 Last Admin: 03/23/17 09:04 Dose: 400 mg Guaifenesin (Robitussin) 200 mg PO Q4HR PRN PRN Reason: Cough or Congestion Stop: 05/20/17 17:24 Cefepime HCl 1 gm/ Dextrose 50 mls @ 100 mls/hr IV Q12H [facility] Stop: 05/20/17 17:29 Last Infusion: 03/22/17 11:25 Dose: Infused Levofloxacin (Levaquin Pb) 500 mg in 100 mls @ 100 mls/hr IV Q24HR [facility] Stop: 05/20/17 19:29 Last Infusion: 03/23/17 01:48 Dose: Infused Potassium Chloride 40 meq/Lidocaine HCl 25 mg/ Sodium Chloride 272.5 mls @ 68 mls/hr IV X1 ONE Stop: 03/23/17 12:44 Last Admin: 03/23/17 09:59 Dose: 68 mls/hr Sodium Chloride (Nacl 0.9%) 1,000 mls @ 50 mls/hr IV .Q20H [facility] Stop: 05/22/17 11:16 Insulin Aspart (Novolog) 0 units SUBQ ACHS [facility] PRN Reason: Protocol Stop: 05/20/17 20:59 Last Admin: 03/23/17 07:17 Dose: Not Given Ipratropium [place] (Atrovent Neb 0.5mg/2.5ml) 0.5 mg IH Q2HRT PRN PRN Reason: Shortness of Breath or Wheeze Stop: 05/20/17 17:24 Ondansetron HCl (Zofran) 4 mg IV Q8H PRN PRN Reason: Nausea / Vomiting Stop: 05/20/17 17:24 Pantoprazole Sodium (Protonix) 40 mg IVP QDAC [facility] Stop: 05/22/17 08:59 Last Admin: 03/23/17 09:59 Dose: 40 mg Senna (Senna) 8.6 mg PO DAILY [facility] Stop: 05/21/17 08:59 Last Admin: 03/23/17 09:04 Dose: 8.6 mg General: congested, alert HEENT: NC/AT, PERRLA Neck: Supple Lungs: rales, ronchi Cardiovascular: RRR, Normal S1, Normal S2, without murmur Abdomen: soft, non-tender, non-distended, positive bowel sound Neurological: alert Internal Medicine Assmt/Plan - Assessment Assessment: Acute respiratory failure possible sepsis Lung CA hypercalcemia severe protein nancy maltnutrition dnr status - Plan Plan: decrease ivf will add megace swallow eval pulmonary toileting and inhaltion treatments follow up labs in am continue current plan of care
[2017-03-23] MEDS ORDERED: KCL 20mEq/100mL Premix 20 MEQ/100 ML PIGGYBACK IV ONE (13:36)
--- NOTE | 2017-03-23 15:26 | General Progress Note ---
Subjective - Review of Systems Service Date: 03/23/17 Subjective: non communicative Objective - Results Result Diagrams: 03/23/17 06:05 03/23/17 06:05 Recent Labs: Laboratory Last Values WBC 6.6 Th/cmm (4.8-10.8) 03/23/17 06:05 RBC 3.40 Mil/cmm (3.80-5.20) L 03/23/17 06:05 Hgb 9.0 gm/dL (12-16) L 03/23/17 06:05 Hct 27.7 % (41.0-60) L 03/23/17 06:05 MCV 81.6 fl (81-100) 03/23/17 06:05 MCH 26.6 pg (27.0-31.0) L 03/23/17 06:05 MCHC Differential 32.6 pg (28.0-36.0) 03/23/17 06:05 RDW 15.0 % (11.5-20.0) 03/23/17 06:05 Plt Count 228 Th/cmm (150-400) 03/23/17 06:05 MPV 6.3 fl 03/23/17 06:05 Neutrophils % 77.8 % (40.0-80.0) 03/23/17 06:05 Lymphocytes % 10.9 % (20.0-50.0) L 03/23/17 06:05 Monocytes % 8.7 % (2.0-10.0) 03/23/17 06:05 Eosinophils % 2.0 % (0.0-5.0) 03/23/17 06:05 Basophils % 0.6 % (0.0-2.0) 03/23/17 06:05 Specimen Source Arterial 03/22/17 09:10 Sample Site Right Radial 03/22/17 09:10 pH 7.47 (7.35-7.45) H 03/22/17 09:10 pCO2 46.0 mmHg (35.0-45.0) H 03/22/17 09:10 pO2 66.0 mmHg (80.0-100.0) L 03/22/17 09:10 HCO3 31.6 mEq/L (20.0-26.0) H 03/22/17 09:10 Base Excess 8.7 mEq/L (-3.0-3.0) H 03/22/17 09:10 O2 Saturation 94.0 % (92.0-100.0) 03/22/17 09:10 Dennis Test YES 03/22/17 09:10 Vent Rate NA 03/22/17 09:10 Inspired O2 35 03/22/17 09:10 Tidal Volume NA 03/22/17 09:10 PEEP NA 03/22/17 09:10 Pressure (ins/psv/peep) NA 03/22/17 09:10 Critical Value E.NATHAN 03/22/17 09:10 Sodium 142 mEq/L (136-145) 03/23/17 06:05 Potassium 3.2 mEq/L (3.5-5.1) L 03/23/17 06:05 Chloride 108 mEq/L (98-107) H 03/23/17 06:05 Carbon Dioxide 29.0 mEq/L (21.0-31.0) 03/23/17 06:05 Anion Gap 8.2 (7.0-16.0) 03/23/17 06:05 BUN 23 mg/dL (7-25) 03/23/17 06:05 Creatinine 0.8 mg/dL (0.6-1.2) 03/23/17 06:05 Est GFR ( Amer) TNP 03/23/17 06:05 Est GFR (Non-Af Amer) TNP 03/23/17 06:05 BUN/Creatinine Ratio 28.8 03/23/17 06:05 Glucose 105 mg/dL (70-105) 03/23/17 06:05 POC Glucose 90 MG/DL (70 - 105) 03/23/17 12:20 Calcium 16.1 mg/dL (8.6-10.3) H* 03/23/17 06:05 Phosphorus 3.1 mg/dL (2.5-5.0) 03/22/17 05:20 Magnesium 1.6 mg/dL (1.9-2.7) L 03/22/17 05:20 Total Bilirubin 0.4 mg/dL (0.3-1.0) 03/22/17 05:20 Direct Bilirubin 0.10 mg/dL (0.0-0.2) 03/22/17 05:20 AST 18 U/L (13-39) 03/22/17 05:20 ALT 6 U/L (7-52) L 03/22/17 05:20 Alkaline Phosphatase 68 U/L (34-104) 03/22/17 05:20 Ammonia 57 umol/L (16-53) H 03/22/17 05:20 B-Natriuretic Peptide 181.0 pg/mL (5.0-100.0) H 03/22/17 05:20 Total Protein 4.9 gm/dL (6.0-8.3) L 03/22/17 05:20 Albumin 2.4 gm/dL (3.7-5.3) L 03/22/17 05:20 Globulin 2.5 gm/dL 03/22/17 05:20 Albumin/Globulin Ratio 1.0 (1.0-1.8) 03/22/17 05:20 TSH 2.14 uIU/ml (0.34-5.60) 03/22/17 05:20 PTH Intact 12 pg/mL (15-65) L 03/22/17 05:20 Urine Source [place] 03/22/17 03:20 Urine Color YELLOW 03/22/17 03:20 Urine Clarity CLEAR (CLEAR) 03/22/17 03:20 Urine pH 6.5 (4.6 - 8.0) 03/22/17 03:20 Ur Specific [place] 1.010 (1.005-1.030) 03/22/17 03:20 Urine Protein NEGATIVE mg/dL (NEGATIVE) 03/22/17 03:20 Urine Glucose (UA) NEGATIVE mg/dL (NEGATIVE) 03/22/17 03:20 Urine Ketones NEGATIVE mg/dL (NEGATIVE) 03/22/17 03:20 Urine Blood SMALL (NEGATIVE) H 03/22/17 03:20 Urine Nitrate NEGATIVE (NEGATIVE) 03/22/17 03:20 Urine Bilirubin NEGATIVE (NEGATIVE) 03/22/17 03:20 Urine Urobilinogen 0.2 E.U./dL (0.2 - 1.0) 03/22/17 03:20 Ur Leukocyte Esterase TRACE (NEGATIVE) H 03/22/17 03:20 Urine RBC 2-5 /hpf (0-5) 03/22/17 03:20 Urine WBC 2-5 /hpf (0-5) 03/22/17 03:20 Ur Epithelial Cells MODERATE /lpf (FEW) 03/22/17 03:20 Urine Bacteria FEW /hpf (NONE SEEN) 03/22/17 03:20 Urine Yeast MODERATE /hpf (NONE SEEN) H 03/22/17 03:20 - Physical Exam Vitals and I&O: Vital Signs Temp 97.2 F 03/23/17 11:38 Pulse 81 03/23/17 13:14 Resp 18 03/23/17 13:14 BP 159/69 03/23/17 11:38 Pulse Ox 97 03/23/17 13:14 Intake & Output 03/22/17 03/23/17 03/23/17 18:59 06:59 18:59 Intake Total 2050 350 Output Total 1150 600 Balance 900 -250 Weight (lbs) 63.503 kg 63.503 kg 63.503 kg Intake: Intake, IV Amount 2050 100 Cefepime 1 gm In Dextrose 50 5% 50 ml @ 100 mls/hr IV Q12H [facility] Rx#:[id number] Levofloxacin 500mg/100mL 100 500 mg In 100 ml @ 100 mls/hr IV Q24HR [facility] Rx#: [id number] Sodium Chloride 0.9% 1, 2000 000 ml @ 125 mls/hr IV . Q8H [facility] Rx#:[id number] Oral 150 Other 100 Output: Urine 1150 600 Other: # Bowel Movements 0 0 Active Medications: Current Medications Acetaminophen (Tylenol) 650 mg PO Q4H PRN PRN Reason: Pain Or Fever above 101 Stop: 05/20/17 17:24 Last Admin: 03/22/17 21:54 Dose: 650 mg Acetaminophen/Hydrocodone Bitart ([place] 5mg/325mg) 1 tab PO Q4H PRN PRN Reason: Pain (Severe) Stop: 05/20/17 17:24 Last Admin: 03/22/17 06:30 Dose: 1 tab Albuterol/Ipratropium (Duoneb Neb) 3 ml HHN [id number] [facility] Stop: 05/21/17 06:59 Last Admin: 03/23/17 13:14 Dose: 3 ml Budesonide (Pulmicort) 0.5 mg HHN BIDRT [facility] Stop: 05/21/17 06:59 Last Admin: 03/23/17 07:58 Dose: 0.5 mg Dexamethasone Sodium Phosphate (Decadron) 4 mg IVP Q6HR [facility] Stop: 05/22/17 17:59 Docusate Sodium (Colace) 250 mg PO DAILY [facility] Stop: 05/21/17 08:59 Last Admin: 03/23/17 09:04 Dose: 250 mg Enalaprilat (Vasotec) 1.25 mg IVP Q6HR PRN PRN Reason: SBP >180 AND UP Stop: 05/22/17 08:29 Enoxaparin Sodium (Lovenox) 40 mg SUBQ DAILY [facility] Stop: 05/21/17 08:59 Last Admin: 03/23/17 09:04 Dose: 40 mg Fentanyl (Duragesic 75 Mcg/Hr Tdm Patch) 1 patch TD Q72HR [facility] PRN Reason: Protocol Stop: 05/22/17 13:59 Ferrous Sulfate (Iron) 325 mg PO DAILY [facility] Stop: 05/21/17 08:59 Last Admin: 03/23/17 09:04 Dose: 325 mg Gabapentin (Neurontin) 400 mg PO TID [facility] Stop: 05/20/17 20:59 Last Admin: 03/23/17 09:04 Dose: 400 mg Guaifenesin (Robitussin) 200 mg PO Q4HR PRN PRN Reason: Cough or Congestion Stop: 05/20/17 17:24 Cefepime HCl 1 gm/ Dextrose 50 mls @ 100 mls/hr IV Q12H [facility] Stop: 05/20/17 17:29 Last Infusion: 03/22/17 11:25 Dose: Infused Levofloxacin (Levaquin Pb) 500 mg in 100 mls @ 100 mls/hr IV Q24HR [facility] Stop: 05/20/17 19:29 Last Infusion: 03/23/17 01:48 Dose: Infused Sodium Chloride (Nacl 0.9%) 1,000 mls @ 50 mls/hr IV .Q20H [facility] Stop: 05/22/17 11:16 Last Admin: 03/23/17 12:30 Dose: 50 mls/hr Fluconazole (Diflucan) 200 mg in 100 mls @ 100 mls/hr IV Q24HR [facility] Stop: 05/22/17 14:29 Potassium Chloride (Potassium Chloride) 20 meq in 100 mls @ 50 mls/hr IV X1 ONE Stop: 03/23/17 15:35 Insulin Aspart (Novolog) 0 units SUBQ ACHS [facility] PRN Reason: Protocol Stop: 05/20/17 20:59 Last Admin: 03/23/17 12:00 Dose: Not Given Ipratropium [place] (Atrovent Neb 0.5mg/2.5ml) 0.5 mg IH Q2HRT PRN PRN Reason: Shortness of Breath or Wheeze Stop: 05/20/17 17:24 Megestrol Acetate (Megace) 400 mg PO DAILY [facility] PRN Reason: Protocol Stop: 05/22/17 16:59 Ondansetron HCl (Zofran) 4 mg IV Q8H PRN PRN Reason: Nausea / Vomiting Stop: 05/20/17 17:24 Pantoprazole Sodium (Protonix) 40 mg IVP QDAC [facility] Stop: 05/22/17 08:59 Last Admin: 03/23/17 09:59 Dose: 40 mg Senna (Senna) 8.6 mg PO DAILY [facility] Stop: 05/21/17 08:59 Last Admin: 03/23/17 09:04 Dose: 8.6 mg General: Alert, Other HEENT: Atraumatic Neck: Supple Lungs: Clear to auscultation Abdomen: Soft Neurological: Other (paraplegic) Assessment/Plan - Assessment Assessment: * Metastatic cholangiocarcinoma * s/p cord compression * malignant hypercalcemia * ALOC S/P PAMIDRONATE START DECADRON, CONTINUE HYDRATION DISCUSSED WITH DAUGHTER POOR PROGNOSIS
[2017-03-23] MEDS: Fluconazole 200mg/100mL 200 MG/100 ML BAG IV SCH (15:30)
[2017-03-23] MEDS: fentaNYL 75 mcg/hr Tdm Patch TD SCH (16:04)
[2017-03-23] MEDS: Dexamethasone Sodium Phos 4 mg/mL Vial IVP SCH (18:01)
[2017-03-24] MEDS: Levofloxacin 500mg/100mL 500 MG/100 ML BAG IV SCH (00:35)
[2017-03-24] MEDS: Dexamethasone Sodium Phos 4 mg/mL Vial IVP SCH ×5 (00:36→23:52)
[2017-03-24] MEDS: Hydrocodone/APAP 5mg/325mg Tab PO PRN (05:00)
[2017-03-24 07:13] LABS: FOLIC ACID 6.4 ng/mL (>3.0)
[2017-03-24] MEDS: INSULIN ASPART, RECOMBINANT 100 UNITS/ML SUBQ SCH ×4 (07:17→22:04)
[2017-03-24] MEDS: Albuterol/Ipratropium Neb 3 ML AERS HHN SCH ×4 (07:24→19:39)
[2017-03-24] MEDS: Budesonide 0.5 Mg/2 mL Ud HHN SCH ×2 (07:24→19:39)
[2017-03-24 07:32] LABS: % BASOPHILS 0.2 % (0.0-2.0); % EOSINOPHILS 0.2 % (0.0-5.0); % LYMPHOCYTES 9.9 % (20.0-50.0); % MONOCYTES 3.3 % (2.0-10.0); % NEUTROPHILS 86.4 % (40.0-80.0); HEMATOCRIT 27.5 % (41.0-60); HEMOGLOBIN 9.2 gm/dL (12-16); LYMPHOCYTE ABSOLUTE 0.5 Th/cmm (1.5-3.0); MEAN CELL VOLUME 81.9 fl (81-100); MEAN CORPUSCULAR HEMOGLOBIN 27.3 pg (27.0-31.0); MEAN CORPUSCULAR HGB CONC 33.3 pg (28.0-36.0); MEAN PLATELET VOLUME 6.5 fl; MONOCYTE ABSOLUTE 0.2 Th/cmm (0.3-1.0); PLATELET COUNT 225 Th/cmm (150-400); RED BLOOD COUNT 3.36 Mil/cmm (3.80-5.20); RED CELL DISTRIBUTION WIDTH 15.1 % (11.5-20.0)
[2017-03-24 07:55] LABS: ANION GAP 10.8 (7.0-16.0); BUN - UREA NITROGEN 29 mg/dL (7-25); CARBON DIOXIDE 26.9 mEq/L (21.0-31.0); CHLORIDE 111 mEq/L (98-107); GLUCOSE 133 mg/dL (70-105); POTASSIUM SERUM 3.7 mEq/L (3.5-5.1); SODIUM SERUM 145 mEq/L (136-145)
[2017-03-24 08:10] LABS: WHITE BLOOD COUNT 4.7 Th/cmm (4.8-10.8)
[2017-03-24] MEDS: Ferrous Sulfate 325 MG TAB PO SCH (08:28)
[2017-03-24] MEDS: Enoxaparin 40 mg/0.4 mL 0.4mL Syr SUBQ SCH (08:28)
[2017-03-24] MEDS: Multivitamin w/ Minerals Tab PO SCH (08:28)
[2017-03-24 08:46] LABS: CALCIUM SERUM 15.1 mg/dL (8.6-10.3)
--- NOTE | 2017-03-24 13:14 | General Progress Note ---
Subjective - Review of Systems Service Date: 03/24/17 Subjective: non communicative Objective - Results Result Diagrams: 03/24/17 06:25 03/24/17 06:25 Recent Labs: Laboratory Last Values WBC 4.7 Th/cmm (4.8-10.8) L D 03/24/17 06:25 RBC 3.36 Mil/cmm (3.80-5.20) L 03/24/17 06:25 Hgb 9.2 gm/dL (12-16) L 03/24/17 06:25 Hct 27.5 % (41.0-60) L 03/24/17 06:25 MCV 81.9 fl (81-100) 03/24/17 06:25 MCH 27.3 pg (27.0-31.0) 03/24/17 06:25 MCHC Differential 33.3 pg (28.0-36.0) 03/24/17 06:25 RDW 15.1 % (11.5-20.0) 03/24/17 06:25 Plt Count 225 Th/cmm (150-400) 03/24/17 06:25 MPV 6.5 fl 03/24/17 06:25 Neutrophils % 86.4 % (40.0-80.0) H 03/24/17 06:25 Lymphocytes % 9.9 % (20.0-50.0) L 03/24/17 06:25 Monocytes % 3.3 % (2.0-10.0) 03/24/17 06:25 Eosinophils % 0.2 % (0.0-5.0) 03/24/17 06:25 Basophils % 0.2 % (0.0-2.0) 03/24/17 06:25 Specimen Source Arterial 03/22/17 09:10 Sample Site Right Radial 03/22/17 09:10 pH 7.47 (7.35-7.45) H 03/22/17 09:10 pCO2 46.0 mmHg (35.0-45.0) H 03/22/17 09:10 pO2 66.0 mmHg (80.0-100.0) L 03/22/17 09:10 HCO3 31.6 mEq/L (20.0-26.0) H 03/22/17 09:10 Base Excess 8.7 mEq/L (-3.0-3.0) H 03/22/17 09:10 O2 Saturation 94.0 % (92.0-100.0) 03/22/17 09:10 Dennis Test YES 03/22/17 09:10 Vent Rate NA 03/22/17 09:10 Inspired O2 35 03/22/17 09:10 Tidal Volume NA 03/22/17 09:10 PEEP NA 03/22/17 09:10 Pressure (ins/psv/peep) NA 03/22/17 09:10 Critical Value E.NATHAN 03/22/17 09:10 Sodium 145 mEq/L (136-145) 03/24/17 06:25 Potassium 3.7 mEq/L (3.5-5.1) 03/24/17 06:25 Chloride 111 mEq/L (98-107) H 03/24/17 06:25 Carbon Dioxide 26.9 mEq/L (21.0-31.0) 03/24/17 06:25 Anion Gap 10.8 (7.0-16.0) 03/24/17 06:25 BUN 29 mg/dL (7-25) H 03/24/17 06:25 Creatinine 1.0 mg/dL (0.6-1.2) 03/24/17 06:25 Est GFR ( Amer) TNP 03/24/17 06:25 Est GFR (Non-Af Amer) TNP 03/24/17 06:25 BUN/Creatinine Ratio 29.0 03/24/17 06:25 Glucose 133 mg/dL (70-105) H 03/24/17 06:25 POC Glucose 124 MG/DL (70 - 105) H 03/24/17 11:05 Calcium 15.1 mg/dL (8.6-10.3) H* 03/24/17 06:25 Phosphorus 3.1 mg/dL (2.5-5.0) 03/22/17 05:20 Magnesium 1.6 mg/dL (1.9-2.7) L 03/22/17 05:20 Total Bilirubin 0.4 mg/dL (0.3-1.0) 03/22/17 05:20 Direct Bilirubin 0.10 mg/dL (0.0-0.2) 03/22/17 05:20 AST 18 U/L (13-39) 03/22/17 05:20 ALT 6 U/L (7-52) L 03/22/17 05:20 Alkaline Phosphatase 68 U/L (34-104) 03/22/17 05:20 Ammonia 57 umol/L (16-53) H 03/22/17 05:20 B-Natriuretic Peptide 181.0 pg/mL (5.0-100.0) H 03/22/17 05:20 Total Protein 4.9 gm/dL (6.0-8.3) L 03/22/17 05:20 Albumin 2.4 gm/dL (3.7-5.3) L 03/22/17 05:20 Globulin 2.5 gm/dL 03/22/17 05:20 Albumin/Globulin Ratio 1.0 (1.0-1.8) 03/22/17 05:20 Vitamin B12 689 pg/mL (232-1245) 03/22/17 05:20 Folic Acid 6.4 ng/mL (>3.0) 03/22/17 05:20 TSH 2.14 uIU/ml (0.34-5.60) 03/22/17 05:20 PTH Intact 12 pg/mL (15-65) L 03/22/17 05:20 Urine Source [place] 03/22/17 03:20 Urine Color YELLOW 03/22/17 03:20 Urine Clarity CLEAR (CLEAR) 03/22/17 03:20 Urine pH 6.5 (4.6 - 8.0) 03/22/17 03:20 Ur Specific [place] 1.010 (1.005-1.030) 03/22/17 03:20 Urine Protein NEGATIVE mg/dL (NEGATIVE) 03/22/17 03:20 Urine Glucose (UA) NEGATIVE mg/dL (NEGATIVE) 03/22/17 03:20 Urine Ketones NEGATIVE mg/dL (NEGATIVE) 03/22/17 03:20 Urine Blood SMALL (NEGATIVE) H 03/22/17 03:20 Urine Nitrate NEGATIVE (NEGATIVE) 03/22/17 03:20 Urine Bilirubin NEGATIVE (NEGATIVE) 03/22/17 03:20 Urine Urobilinogen 0.2 E.U./dL (0.2 - 1.0) 03/22/17 03:20 Ur Leukocyte Esterase TRACE (NEGATIVE) H 03/22/17 03:20 Urine RBC 2-5 /hpf (0-5) 03/22/17 03:20 Urine WBC 2-5 /hpf (0-5) 03/22/17 03:20 Ur Epithelial Cells MODERATE /lpf (FEW) 03/22/17 03:20 Urine Bacteria FEW /hpf (NONE SEEN) 03/22/17 03:20 Urine Yeast MODERATE /hpf (NONE SEEN) H 03/22/17 03:20 - Physical Exam Vitals and I&O: Vital Signs Temp 98.8 F 03/24/17 04:00 Pulse 91 03/24/17 12:00 Resp 16 03/24/17 11:05 BP 190/79 03/24/17 12:00 Pulse Ox 94 03/24/17 11:05 Intake & Output 03/23/17 03/24/17 03/24/17 18:59 06:59 18:59 Intake Total 100 50 100 Output Total 650 350 Balance -550 -300 100 Weight (lbs) 63.503 kg 63.503 kg Intake: Intake, IV Amount 50 50 100 Cefepime 1 gm In Dextrose 50 50 5% 50 ml @ 100 mls/hr IV Q12H [facility] Rx#:[id number] Fluconazole 200mg/100mL 100 200 mg In 100 ml @ 100 mls/hr IV Q24HR [facility] Rx#: [id number] Oral 50 Output: Urine 650 350 Other: # Bowel Movements 0 Active Medications: Current Medications Acetaminophen (Tylenol) 650 mg PO Q4H PRN PRN Reason: Pain Or Fever above 101 Stop: 05/20/17 17:24 Last Admin: 03/22/17 21:54 Dose: 650 mg Acetaminophen/Hydrocodone Bitart ([place] 5mg/325mg) 1 tab PO Q4H PRN PRN Reason: Pain (Severe) Stop: 05/20/17 17:24 Last Admin: 03/24/17 05:00 Dose: 1 tab Albuterol/Ipratropium (Duoneb Neb) 3 ml HHN [id number] [facility] Stop: 05/21/17 06:59 Last Admin: 03/24/17 11:01 Dose: 3 ml Budesonide (Pulmicort) 0.5 mg HHN BIDRT [facility] Stop: 05/21/17 06:59 Last Admin: 03/24/17 07:24 Dose: 0.5 mg Dexamethasone Sodium Phosphate (Decadron) 4 mg IVP Q6HR [facility] Stop: 05/22/17 17:59 Last Admin: 03/24/17 12:00 Dose: 4 mg Docusate Sodium (Colace) 250 mg PO DAILY [facility] Stop: 05/21/17 08:59 Last Admin: 03/24/17 08:28 Dose: 250 mg Enalaprilat (Vasotec) 1.25 mg IVP Q6HR PRN PRN Reason: SBP >180 AND UP Stop: 05/22/17 08:29 Last Admin: 03/24/17 12:00 Dose: 1.25 mg Enoxaparin Sodium (Lovenox) 40 mg SUBQ DAILY [facility] Stop: 03/25/17 08:00 Last Admin: 03/24/17 08:28 Dose: 40 mg Fentanyl (Duragesic 75 Mcg/Hr Tdm Patch) 1 patch TD Q72HR [facility] PRN Reason: Protocol Stop: 05/22/17 13:59 Last Admin: 03/23/17 16:04 Dose: 1 patch Ferrous Sulfate (Iron) 325 mg PO DAILY [facility] Stop: 05/21/17 08:59 Last Admin: 03/24/17 08:28 Dose: 325 mg Gabapentin (Neurontin) 400 mg PO TID [facility] Stop: 05/20/17 20:59 Last Admin: 03/24/17 08:30 Dose: 400 mg Guaifenesin (Robitussin) 200 mg PO Q4HR PRN PRN Reason: Cough or Congestion Stop: 05/20/17 17:24 Cefepime HCl 1 gm/ Dextrose 50 mls @ 100 mls/hr IV Q12H [facility] Stop: 05/20/17 17:29 Last Infusion: 03/24/17 05:23 Dose: Infused Levofloxacin (Levaquin Pb) 500 mg in 100 mls @ 100 mls/hr IV Q24HR [facility] Stop: 05/20/17 19:29 Last Admin: 03/24/17 00:35 Dose: 100 mls/hr Sodium Chloride (Nacl 0.9%) 1,000 mls @ 50 mls/hr IV .Q20H [facility] Stop: 05/22/17 11:16 Last Admin: 03/23/17 12:30 Dose: 50 mls/hr Fluconazole (Diflucan) 200 mg in 100 mls @ 100 mls/hr IV Q24HR [facility] Stop: 05/22/17 14:29 Last Infusion: 03/24/17 13:04 Dose: Infused Insulin Aspart (Novolog) 0 units SUBQ ACHS [facility] PRN Reason: Protocol Stop: 05/20/17 20:59 Last Admin: 03/24/17 11:31 Dose: Not Given Ipratropium [place] (Atrovent Neb 0.5mg/2.5ml) 0.5 mg IH Q2HRT PRN PRN Reason: Shortness of Breath or Wheeze Stop: 05/20/17 17:24 Megestrol Acetate (Megace) 400 mg PO DAILY [facility] PRN Reason: Protocol Stop: 05/22/17 16:59 Last Admin: 03/24/17 08:28 Dose: 400 mg Ondansetron HCl (Zofran) 4 mg IV Q8H PRN PRN Reason: Nausea / Vomiting Stop: 05/20/17 17:24 Pantoprazole Sodium (Protonix) 40 mg IVP QDAC [facility] Stop: 05/22/17 08:59 Last Admin: 03/24/17 08:28 Dose: 40 mg Senna (Senna) 8.6 mg PO DAILY [facility] Stop: 05/21/17 08:59 Last Admin: 03/24/17 08:28 Dose: 8.6 mg General: Alert (more verbal), Other HEENT: Atraumatic Neck: Supple Lungs: Clear to auscultation Abdomen: Soft Neurological: Other (paraplegic) Assessment/Plan - Assessment Assessment: * Metastatic cholangiocarcinoma * s/p cord compression * malignant hypercalcemia improving * ALOC secondary to hypercalcemia S/P PAMIDRONATE Continue DECADRON, CONTINUE HYDRATION DISCUSSED WITH DAUGHTER POOR PROGNOSIS
[2017-03-24] MEDS: HYDROmorphone 1 mg/mL 1mL Syr IVP PRN (13:54)
[2017-03-24] MEDS: Fluconazole 200mg/100mL 200 MG/100 ML BAG IV SCH (14:21)
[2017-03-24 14:32] LABS: A1C % 6.1 % (4.0-6.0)
--- NOTE | 2017-03-24 17:37 | Internal Medicine Prog Note ---
Internal Medicine Subjective - Subjective Patient seen and examined:: with staff, chart reviewed Patient is:: asleep, non-verbal, non-interactive, eyes closed, in bed, confused , congested Patient Complaints of:: congestion Per staff patient has:: poor appetite, poor oral intake, noncompliant, confused Internal Medicine Objective - Results Result Diagrams: 03/24/17 06:25 03/24/17 06:25 Recent Labs: Laboratory Last Values WBC 4.7 Th/cmm (4.8-10.8) L D 03/24/17 06:25 RBC 3.36 Mil/cmm (3.80-5.20) L 03/24/17 06:25 Hgb 9.2 gm/dL (12-16) L 03/24/17 06:25 Hct 27.5 % (41.0-60) L 03/24/17 06:25 MCV 81.9 fl (81-100) 03/24/17 06:25 MCH 27.3 pg (27.0-31.0) 03/24/17 06:25 MCHC Differential 33.3 pg (28.0-36.0) 03/24/17 06:25 RDW 15.1 % (11.5-20.0) 03/24/17 06:25 Plt Count 225 Th/cmm (150-400) 03/24/17 06:25 MPV 6.5 fl 03/24/17 06:25 Neutrophils % 86.4 % (40.0-80.0) H 03/24/17 06:25 Lymphocytes % 9.9 % (20.0-50.0) L 03/24/17 06:25 Monocytes % 3.3 % (2.0-10.0) 03/24/17 06:25 Eosinophils % 0.2 % (0.0-5.0) 03/24/17 06:25 Basophils % 0.2 % (0.0-2.0) 03/24/17 06:25 Specimen Source Arterial 03/22/17 09:10 Sample Site Right Radial 03/22/17 09:10 pH 7.47 (7.35-7.45) H 03/22/17 09:10 pCO2 46.0 mmHg (35.0-45.0) H 03/22/17 09:10 pO2 66.0 mmHg (80.0-100.0) L 03/22/17 09:10 HCO3 31.6 mEq/L (20.0-26.0) H 03/22/17 09:10 Base Excess 8.7 mEq/L (-3.0-3.0) H 03/22/17 09:10 O2 Saturation 94.0 % (92.0-100.0) 03/22/17 09:10 Dennis Test YES 03/22/17 09:10 Vent Rate NA 03/22/17 09:10 Inspired O2 35 03/22/17 09:10 Tidal Volume NA 03/22/17 09:10 PEEP NA 03/22/17 09:10 Pressure (ins/psv/peep) NA 03/22/17 09:10 Critical Value E.NATHAN 03/22/17 09:10 Sodium 145 mEq/L (136-145) 03/24/17 06:25 Potassium 3.7 mEq/L (3.5-5.1) 03/24/17 06:25 Chloride 111 mEq/L (98-107) H 03/24/17 06:25 Carbon Dioxide 26.9 mEq/L (21.0-31.0) 03/24/17 06:25 Anion Gap 10.8 (7.0-16.0) 03/24/17 06:25 BUN 29 mg/dL (7-25) H 03/24/17 06:25 Creatinine 1.0 mg/dL (0.6-1.2) 03/24/17 06:25 Est GFR ( Amer) TNP 03/24/17 06:25 Est GFR (Non-Af Amer) TNP 03/24/17 06:25 BUN/Creatinine Ratio 29.0 03/24/17 06:25 Glucose 133 mg/dL (70-105) H 03/24/17 06:25 POC Glucose 154 MG/DL (70 - 105) H 03/24/17 16:28 Hemoglobin A1c % 6.1 % (4.0-6.0) H 03/22/17 05:20 Calcium 15.1 mg/dL (8.6-10.3) H* 03/24/17 06:25 Phosphorus 3.1 mg/dL (2.5-5.0) 03/22/17 05:20 Magnesium 1.6 mg/dL (1.9-2.7) L 03/22/17 05:20 Total Bilirubin 0.4 mg/dL (0.3-1.0) 03/22/17 05:20 Direct Bilirubin 0.10 mg/dL (0.0-0.2) 03/22/17 05:20 AST 18 U/L (13-39) 03/22/17 05:20 ALT 6 U/L (7-52) L 03/22/17 05:20 Alkaline Phosphatase 68 U/L (34-104) 03/22/17 05:20 Ammonia 57 umol/L (16-53) H 03/22/17 05:20 B-Natriuretic Peptide 181.0 pg/mL (5.0-100.0) H 03/22/17 05:20 Total Protein 4.9 gm/dL (6.0-8.3) L 03/22/17 05:20 Albumin 2.4 gm/dL (3.7-5.3) L 03/22/17 05:20 Globulin 2.5 gm/dL 03/22/17 05:20 Albumin/Globulin Ratio 1.0 (1.0-1.8) 03/22/17 05:20 Vitamin B12 689 pg/mL (232-1245) 03/22/17 05:20 Folic Acid 6.4 ng/mL (>3.0) 03/22/17 05:20 TSH 2.14 uIU/ml (0.34-5.60) 03/22/17 05:20 PTH Intact 12 pg/mL (15-65) L 03/22/17 05:20 Urine Source [place] 03/22/17 03:20 Urine Color YELLOW 03/22/17 03:20 Urine Clarity CLEAR (CLEAR) 03/22/17 03:20 Urine pH 6.5 (4.6 - 8.0) 03/22/17 03:20 Ur Specific [place] 1.010 (1.005-1.030) 03/22/17 03:20 Urine Protein NEGATIVE mg/dL (NEGATIVE) 03/22/17 03:20 Urine Glucose (UA) NEGATIVE mg/dL (NEGATIVE) 03/22/17 03:20 Urine Ketones NEGATIVE mg/dL (NEGATIVE) 03/22/17 03:20 Urine Blood SMALL (NEGATIVE) H 03/22/17 03:20 Urine Nitrate NEGATIVE (NEGATIVE) 03/22/17 03:20 Urine Bilirubin NEGATIVE (NEGATIVE) 03/22/17 03:20 Urine Urobilinogen 0.2 E.U./dL (0.2 - 1.0) 03/22/17 03:20 Ur Leukocyte Esterase TRACE (NEGATIVE) H 03/22/17 03:20 Urine RBC 2-5 /hpf (0-5) 03/22/17 03:20 Urine WBC 2-5 /hpf (0-5) 03/22/17 03:20 Ur Epithelial Cells MODERATE /lpf (FEW) 03/22/17 03:20 Urine Bacteria FEW /hpf (NONE SEEN) 03/22/17 03:20 Urine Yeast MODERATE /hpf (NONE SEEN) H 03/22/17 03:20 - Physical Exam Vitals and I&O: Vital Signs Temp 98.2 F 03/24/17 12:00 Pulse 79 03/24/17 14:38 Resp 16 03/24/17 14:38 BP 161/77 03/24/17 13:00 Pulse Ox 95 03/24/17 14:38 Intake & Output 03/23/17 03/24/17 03/24/17 18:59 06:59 18:59 Intake Total 100 50 100 Output Total 650 350 Balance -550 -300 100 Weight (lbs) 63.503 kg 63.503 kg Intake: Intake, IV Amount 50 50 100 Cefepime 1 gm In Dextrose 50 50 5% 50 ml @ 100 mls/hr IV Q12H [facility] Rx#:[id number] Fluconazole 200mg/100mL 100 200 mg In 100 ml @ 100 mls/hr IV Q24HR [facility] Rx#: [id number] Oral 50 Output: Urine 650 350 Other: # Bowel Movements 0 Active Medications: Current Medications Acetaminophen (Tylenol) 650 mg PO Q4H PRN PRN Reason: Pain Or Fever above 101 Stop: 05/20/17 17:24 Last Admin: 03/22/17 21:54 Dose: 650 mg Acetaminophen/Hydrocodone Bitart ([place] 5mg/325mg) 1 tab PO Q4H PRN PRN Reason: Pain (Severe) Stop: 05/20/17 17:24 Last Admin: 03/24/17 05:00 Dose: 1 tab Albuterol/Ipratropium (Duoneb Neb) 3 ml HHN [id number] [facility] Stop: 05/21/17 06:59 Last Admin: 03/24/17 14:35 Dose: 3 ml Budesonide (Pulmicort) 0.5 mg HHN BIDRT [facility] Stop: 05/21/17 06:59 Last Admin: 03/24/17 07:24 Dose: 0.5 mg Clonidine HCl (Mhejgnin-Piu-6) 1 patch TD Sa [facility] Stop: 05/23/17 17:44 Dexamethasone Sodium Phosphate (Decadron) 4 mg IVP Q6HR [facility] Stop: 05/22/17 17:59 Last Admin: 03/24/17 12:00 Dose: 4 mg Docusate Sodium (Colace) 250 mg PO DAILY [facility] Stop: 05/21/17 08:59 Last Admin: 03/24/17 08:28 Dose: 250 mg Enalaprilat (Vasotec) 1.25 mg IVP Q6HR PRN PRN Reason: SBP >180 AND UP Stop: 05/22/17 08:29 Last Admin: 03/24/17 12:00 Dose: 1.25 mg Enoxaparin Sodium (Lovenox) 40 mg SUBQ DAILY [facility] Stop: 03/25/17 08:00 Last Admin: 03/24/17 08:28 Dose: 40 mg Fentanyl (Duragesic 75 Mcg/Hr Tdm Patch) 1 patch TD Q72HR [facility] PRN Reason: Protocol Stop: 05/22/17 13:59 Last Admin: 03/23/17 16:04 Dose: 1 patch Ferrous Sulfate (Iron) 325 mg PO DAILY [facility] Stop: 05/21/17 08:59 Last Admin: 03/24/17 08:28 Dose: 325 mg Gabapentin (Neurontin) 400 mg PO TID [facility] Stop: 05/20/17 20:59 Last Admin: 03/24/17 13:54 Dose: 400 mg Guaifenesin (Robitussin) 200 mg PO Q4HR PRN PRN Reason: Cough or Congestion Stop: 05/20/17 17:24 Hydromorphone HCl (Dilaudid) 0.5 mg IVP Q4HR PRN PRN Reason: Pain (Severe) Stop: 05/23/17 13:23 Last Admin: 03/24/17 13:54 Dose: 0.5 mg Cefepime HCl 1 gm/ Dextrose 50 mls @ 100 mls/hr IV Q12H [facility] Stop: 05/20/17 17:29 Last Infusion: 03/24/17 05:23 Dose: Infused Sodium Chloride (Nacl 0.9%) 1,000 mls @ 50 mls/hr IV .Q20H [facility] Stop: 05/22/17 11:16 Last Admin: 03/23/17 12:30 Dose: 50 mls/hr Fluconazole (Diflucan) 200 mg in 100 mls @ 100 mls/hr IV Q24HR [facility] Stop: 05/22/17 14:29 Last Admin: 03/24/17 14:21 Dose: 100 mls/hr Insulin Aspart (Novolog) 0 units SUBQ ACHS [facility] PRN Reason: Protocol Stop: 05/20/17 20:59 Last Admin: 03/24/17 16:30 Dose: Not Given Ipratropium [place] (Atrovent Neb 0.5mg/2.5ml) 0.5 mg IH Q2HRT PRN PRN Reason: Shortness of Breath or Wheeze Stop: 05/20/17 17:24 Megestrol Acetate (Megace) 400 mg PO DAILY [facility] PRN Reason: Protocol Stop: 05/22/17 16:59 Last Admin: 03/24/17 08:28 Dose: 400 mg Ondansetron HCl (Zofran) 4 mg IV Q8H PRN PRN Reason: Nausea / Vomiting Stop: 05/20/17 17:24 Pantoprazole Sodium (Protonix) 40 mg IVP QDAC [facility] Stop: 05/22/17 08:59 Last Admin: 03/24/17 08:28 Dose: 40 mg Senna (Senna) 8.6 mg PO DAILY [facility] Stop: 05/21/17 08:59 Last Admin: 03/24/17 08:28 Dose: 8.6 mg General: congested, obese, edematous, appears older HEENT: NC/AT, PERRLA Neck: Supple Lungs: rales, ronchi Cardiovascular: RRR, Normal S1, Normal S2, without murmur Abdomen: soft, non-tender, non-distended, positive bowel sound Extremities: edema Neurological: lethargic, bedbound Internal Medicine Assmt/Plan - Assessment Assessment: Acute respiratory failure possible sepsis Lung CA, cholangioca hypercalcemia severe protein nancy maltnutrition dnr status - Plan Plan: decrease ivf will add megace swallow eval pulmonary toileting and inhaltion treatments follow up labs in am continue current plan of care - Plan Plan: will adjust pain control add ha sam family
[2017-03-24] MEDS ORDERED: cloNIDine 0.1 mg/24 hr Tdm TD SCH (17:45)
[2017-03-24] MEDS: Sodium Chloride 0.9% 1,000 ML IV SCH (23:56)
--- NOTE | 2017-03-25 00:05 | Consultation ---
DATE OF CONSULTATION: 03/24/2017 REASON FOR CONSULTATION: Failure to thrive, request for G-tube placement. HISTORY OF PRESENT ILLNESS: This consult was obtained through the request of Dr. 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 Also, history of asthma, COPD, and rheumatoid arthritis. She has bone mets, admitted to the hospital for altered level of consciousness and now, the patient is not eating and we were asked to evaluate her for feeding tube placement. The patient is arousable, but not able to talk much. She is shaky and discussed with the daughter, she has not been able to eat anything. 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 PAST SURGICAL HISTORY: She had spine surgery. SOCIAL HISTORY: Ex-smoker. Nonalcoholic. IV drug abuser. FAMILY HISTORY: Noncontributory. ALLERGIES: IBUPROFEN and PENICILLIN. MEDICATIONS: The patient is on Tylenol, [place], DuoNeb, budesonide, cefepime, Decadron, Colace, Vasotec, Lovenox, fentanyl patch, iron, Diflucan, Neurontin, Robitussin, NovoLog, Atrovent, Levaquin, Megace, Zofran, Protonix, and senna. REVIEW OF SYSTEMS: Unobtainable. PHYSICAL EXAMINATION: GENERAL: The patient is arousable, responsive, shaky. VITAL SIGNS: Blood pressure is 180/93, heart rate 96, respiratory rate 18, and temperature is 98.8. HEAD AND NECK: Pupils reactive to light. Extraocular muscles could not be tested. Oral cavity, dry mucous membrane. NECK: Supple. CHEST: Good air entry. LUNGS: Showed few rhonchi. CARDIOVASCULAR: Regular rate and rhythm. No murmur or gallop. ABDOMEN: Soft, positive bowel sounds, not tender. EXTREMITIES: Lower extremities, no edema. There is stasis dermatitis. CENTRAL NERVOUS SYSTEM: The patient is moving 4 extremities, have some shakiness and tremors. LABORATORY DATA: White count 4.7 and H and H of 9.2 and 27.5, and platelets are 225. No PT, PTT. BUN and creatinine are 29 and 1, calcium is 15.1. No liver enzymes have been done. The patient had a CT of the chest a few days ago, which showed 3.3 mass on the left upper lobe, cardiomegaly, parenchymal changes. IMPRESSION: A 76-year-old with failure to thrive. ASSESSMENT AND PLAN: Failure to thrive. The patient has metastatic cancer and it does not seem that prognosis is good. The family understands this, the treating physician understand that. I talked to one of the doctors to wean. She initially agreed for the PEG, but she relies also that this is the disease itself gives her mother very limited viability and a guarded prognosis. So, even though she agreed for the PEG and she understands the risks, she says she will discuss with the rest of her family and wants to also discuss with the other treating physician, especially the PCP and oncologist and today is Sunday, if they agree, we can do this on Sunday. Meanwhile, we will check PT/PTT. If they agree to do the PEG, We will hold Lovenox and then we will do it on Sunday. Other medical problems such as metastatic cancer, COPD, hypertension, etc., as per Dr. Lopes. Thank you Moses for allowing me to participate in the care of the patient. If you have any further questions, please let me know. JOB# [id number]
[2017-03-25] MEDS: HYDROmorphone 1 mg/mL 1mL Syr IVP PRN ×3 (03:02→19:39)
--- NOTE | 2017-03-25 03:36 | Progress Notes ---
DATE: 03/23/2017 PROBLEM LIST: 1. CA of lung. 2. Paraneoplastic syndrome. 3. Suspect obstructive sleep apnea syndrome. SYMPTOMS: The patient is slightly awake. No respiratory distress. PHYSICAL EXAMINATION: VITAL SIGNS: Temperature is 98.2, blood pressure 190/79, saturation 90% on 4 liters of oxygen. NECK: Veins not visualized. CHEST: Shows diminished air entry. No other adventitious breath sounds. HEART: Regular. ABDOMEN: Soft, nontender. EXTREMITIES: Shows a slight trace of peripheral edema peripherally. ASSESSMENT: The patient is clinically stable, still hyperglycemia. PLANS AND SUGGESTIONS: We will continue current treatment. Continue steroid, Lasix, Aredia has been given and we will follow through other testing in the few days' time and go from there. JOB# [id number]
--- NOTE | 2017-03-25 03:41 | Progress Notes ---
DATE: 03/24/2017 PULMONARY PROGRESS NOTE PROBLEM LIST: 1. Cancer of lung. 2. Possibly mets. 3. Paraneoplastic syndrome. 4. Obstructive sleep apnea syndrome. 5. COPD. SYMPTOMS: Nil. The patient is awake, being fed by the family. Offers no specific new symptomatology, eating a little bit at times. PHYSICAL EXAMINATION: VITAL SIGNS: The patient's temperature is 98.3, blood pressure 164/75, saturation 98. NECK: Veins not visualized. CHEST: Shows diminished air entry with occasional rhonchi. HEART: Regular. ABDOMEN: Soft, nontender. EXTREMITIES: Shows no peripheral edema. Calcium is still high at 15. ASSESSMENT: The patient is doing poorly overall though more awake, severe hypercalcemia, paraneoplastic syndrome with chronic obstructive pulmonary disease with history of lung cancer. PLAN: Continue supportive care and see how she does in the next few days. Care and plan discussed with the granddaughter at the bedside. JOB# [id number]
[2017-03-25] MEDS: Dexamethasone Sodium Phos 4 mg/mL Vial IVP SCH ×3 (05:37→17:16)
[2017-03-25 06:33] LABS: HEMATOCRIT 27.2 % (41.0-60); HEMOGLOBIN 8.9 gm/dL (12-16); MEAN CELL VOLUME 81.4 fl (81-100); MEAN CORPUSCULAR HEMOGLOBIN 26.7 pg (27.0-31.0); MEAN CORPUSCULAR HGB CONC 32.8 pg (28.0-36.0); MEAN PLATELET VOLUME 6.5 fl; PLATELET COUNT 209 Th/cmm (150-400); RED BLOOD COUNT 3.34 Mil/cmm (3.80-5.20); RED CELL DISTRIBUTION WIDTH 15.8 % (11.5-20.0)
[2017-03-25 06:57] LABS: ALBUMIN 2.6 gm/dL (3.7-5.3); ALKALINE PHOSPHATASE 84 U/L (34-104); ANION GAP 11.3 (7.0-16.0); BILIRUBIN,TOTAL 0.4 mg/dL (0.3-1.0); BUN - UREA NITROGEN 38 mg/dL (7-25); CARBON DIOXIDE 24.8 mEq/L (21.0-31.0); CHLORIDE 113 mEq/L (98-107); CREATININE - SERUM 1.1 mg/dL (0.6-1.2); GLUCOSE 140 mg/dL (70-105); LIPASE 14 U/L (11-82); POTASSIUM SERUM 3.1 mEq/L (3.5-5.1); SGOT 18 U/L (13-39); SGPT/ALT 7 U/L (7-52); SODIUM SERUM 146 mEq/L (136-145); TOTAL PROTEIN,SERUM 5.2 gm/dL (6.0-8.3)
[2017-03-25 07:00] LABS: INR 1.21 (0.5-1.4); PROTHROMBIN TIME (TEST) 12.7 SECONDS (9.5-11.5)
[2017-03-25] MEDS: Budesonide 0.5 Mg/2 mL Ud HHN SCH ×2 (07:03→18:30)
[2017-03-25] MEDS: Albuterol/Ipratropium Neb 3 ML AERS HHN SCH ×4 (07:03→18:30)
[2017-03-25] MEDS: INSULIN ASPART, RECOMBINANT 100 UNITS/ML SUBQ SCH ×4 (07:07→22:36)
[2017-03-25 07:11] LABS: CALCIUM SERUM 13.6 mg/dL (8.6-10.3)
[2017-03-25 07:44] LABS: pH 7.47 (7.35-7.45)
[2017-03-25 08:28] LABS: BAND NEUTROPHILE 9 % (0-10); LYMPHOCYTE 12 % (20-50); MONOCYTE 6 % (2-10); NEUTROPHILS 73 % (40-80); PLATELET ESTIMATE ADEQUATE (NORMAL); TOTAL CELLS COUNTED 100
[2017-03-25] MEDS: Ferrous Sulfate 325 MG TAB PO SCH (09:45)
[2017-03-25] MEDS: Multivitamin w/ Minerals Tab PO SCH (09:45)
[2017-03-25] MEDS ORDERED: Potassium Phosphate 20 MMOLE in Sodium Chloride 0.9% 250 ML IV ONE (12:28)
--- NOTE | 2017-03-25 13:12 | Internal Medicine Prog Note ---
Internal Medicine Subjective - Subjective Patient seen and examined:: with staff, chart reviewed Patient is:: asleep, non-verbal, non-interactive, eyes closed, in bed, confused , congested Patient Complaints of:: congestion Per staff patient has:: poor appetite, poor oral intake, noncompliant, confused Internal Medicine Objective - Results Result Diagrams: 03/25/17 05:00 03/25/17 05:00 Recent Labs: Laboratory Last Values WBC 7.0 Th/cmm (4.8-10.8) D 03/25/17 05:00 RBC 3.34 Mil/cmm (3.80-5.20) L 03/25/17 05:00 Hgb 8.9 gm/dL (12-16) L 03/25/17 05:00 Hct 27.2 % (41.0-60) L 03/25/17 05:00 MCV 81.4 fl (81-100) 03/25/17 05:00 MCH 26.7 pg (27.0-31.0) L 03/25/17 05:00 MCHC Differential 32.8 pg (28.0-36.0) 03/25/17 05:00 RDW 15.8 % (11.5-20.0) 03/25/17 05:00 Plt Count 209 Th/cmm (150-400) 03/25/17 05:00 MPV 6.5 fl 03/25/17 05:00 Neutrophils % [employer] 03/25/17 05:00 Band Neutrophils % 9 % (0-10) 03/25/17 05:00 Lymphocytes % [employer] 03/25/17 05:00 Monocytes % [employer] 03/25/17 05:00 Eosinophils % [employer] 03/25/17 05:00 Basophils % [employer] 03/25/17 05:00 Neutrophils (Manual) 73 % (40-80) 03/25/17 05:00 Lymphocytes 12 % (20-50) L 03/25/17 05:00 Monocytes 6 % (2-10) 03/25/17 05:00 Platelet Estimate ADEQUATE (NORMAL) 03/25/17 05:00 PT 12.7 SECONDS (9.5-11.5) H 03/25/17 05:00 INR 1.21 (0.5-1.4) 03/25/17 05:00 PTT (Actin FS) 20.5 SECONDS (26.0-38.0) L 03/25/17 05:00 Specimen Source Arterial 03/25/17 07:33 Sample Site LB 03/25/17 07:33 pH 7.47 (7.35-7.45) H 03/25/17 07:33 pCO2 36.0 mmHg (35.0-45.0) 03/25/17 07:33 pO2 51.0 mmHg (80.0-100.0) L 03/25/17 07:33 HCO3 26.7 mEq/L (20.0-26.0) H 03/25/17 07:33 Base Excess 2.6 mEq/L (-3.0-3.0) 03/25/17 07:33 O2 Saturation 88.0 % (92.0-100.0) L 03/25/17 07:33 Dennis Test YES 03/22/17 09:10 Vent Rate NA 03/22/17 09:10 Inspired O2 44 03/25/17 07:33 Tidal Volume NA 03/22/17 09:10 PEEP NA 03/22/17 09:10 Pressure (ins/psv/peep) NA 03/22/17 09:10 Critical Value PW 03/25/17 07:33 Sodium 146 mEq/L (136-145) H 03/25/17 05:00 Potassium 3.1 mEq/L (3.5-5.1) L 03/25/17 05:00 Chloride 113 mEq/L (98-107) H 03/25/17 05:00 Carbon Dioxide 24.8 mEq/L (21.0-31.0) 03/25/17 05:00 Anion Gap 11.3 (7.0-16.0) 03/25/17 05:00 BUN 38 mg/dL (7-25) H 03/25/17 05:00 Creatinine 1.1 mg/dL (0.6-1.2) 03/25/17 05:00 Est GFR ( Amer) TNP 03/25/17 05:00 Est GFR (Non-Af Amer) TNP 03/25/17 05:00 BUN/Creatinine Ratio 34.5 03/25/17 05:00 Glucose 140 mg/dL (70-105) H 03/25/17 05:00 POC Glucose 153 MG/DL (70 - 105) H 03/25/17 11:15 Hemoglobin A1c % 6.1 % (4.0-6.0) H 03/22/17 05:20 Calcium 13.6 mg/dL (8.6-10.3) H* 03/25/17 05:00 Phosphorus 3.1 mg/dL (2.5-5.0) 03/22/17 05:20 Magnesium 1.6 mg/dL (1.9-2.7) L 03/22/17 05:20 Total Bilirubin 0.4 mg/dL (0.3-1.0) 03/25/17 05:00 Direct Bilirubin 0.10 mg/dL (0.0-0.2) 03/22/17 05:20 AST 18 U/L (13-39) 03/25/17 05:00 ALT 7 U/L (7-52) 03/25/17 05:00 Alkaline Phosphatase 84 U/L (34-104) 03/25/17 05:00 Ammonia 57 umol/L (16-53) H 03/22/17 05:20 B-Natriuretic Peptide 181.0 pg/mL (5.0-100.0) H 03/22/17 05:20 Total Protein 5.2 gm/dL (6.0-8.3) L 03/25/17 05:00 Albumin 2.6 gm/dL (3.7-5.3) L 03/25/17 05:00 Globulin 2.6 gm/dL 03/25/17 05:00 Albumin/Globulin Ratio 1.0 (1.0-1.8) 03/25/17 05:00 Lipase 14 U/L (11-82) 03/25/17 05:00 Vitamin B12 689 pg/mL (232-1245) 03/22/17 05:20 Folic Acid 6.4 ng/mL (>3.0) 03/22/17 05:20 TSH 2.14 uIU/ml (0.34-5.60) 03/22/17 05:20 PTH Intact 12 pg/mL (15-65) L 03/22/17 05:20 Urine Source [place] 03/22/17 03:20 Urine Color YELLOW 03/22/17 03:20 Urine Clarity CLEAR (CLEAR) 03/22/17 03:20 Urine pH 6.5 (4.6 - 8.0) 03/22/17 03:20 Ur Specific [place] 1.010 (1.005-1.030) 03/22/17 03:20 Urine Protein NEGATIVE mg/dL (NEGATIVE) 03/22/17 03:20 Urine Glucose (UA) NEGATIVE mg/dL (NEGATIVE) 03/22/17 03:20 Urine Ketones NEGATIVE mg/dL (NEGATIVE) 03/22/17 03:20 Urine Blood SMALL (NEGATIVE) H 03/22/17 03:20 Urine Nitrate NEGATIVE (NEGATIVE) 03/22/17 03:20 Urine Bilirubin NEGATIVE (NEGATIVE) 03/22/17 03:20 Urine Urobilinogen 0.2 E.U./dL (0.2 - 1.0) 03/22/17 03:20 Ur Leukocyte Esterase TRACE (NEGATIVE) H 03/22/17 03:20 Urine RBC 2-5 /hpf (0-5) 03/22/17 03:20 Urine WBC 2-5 /hpf (0-5) 03/22/17 03:20 Ur Epithelial Cells MODERATE /lpf (FEW) 03/22/17 03:20 Urine Bacteria FEW /hpf (NONE SEEN) 03/22/17 03:20 Urine Yeast MODERATE /hpf (NONE SEEN) H 03/22/17 03:20 - Physical Exam Vitals and I&O: Vital Signs Temp 97.6 F 03/25/17 12:00 Pulse 89 03/25/17 12:00 Resp 20 03/25/17 12:00 BP 147/70 03/25/17 12:00 Pulse Ox 96 03/25/17 12:00 Intake & Output 03/24/17 03/25/17 03/25/17 18:59 06:59 18:59 Intake Total 1250 50 Output Total 350 Balance 1250 -300 Weight (lbs) 63.503 kg 63.503 kg Intake: Intake, IV Amount 1250 Cefepime 1 gm In Dextrose 50 5% 50 ml @ 100 mls/hr IV Q12H [facility] Rx#:[id number] Fluconazole 200mg/100mL 200 200 mg In 100 ml @ 100 mls/hr IV Q24HR [facility] Rx#: [id number] Sodium Chloride 0.9% 1, 1000 000 ml @ 50 mls/hr IV . Q20H [facility] Rx#:[id number] Oral 50 Output: Urine 350 Other: # Bowel Movements 1 Active Medications: Current Medications Acetaminophen (Tylenol) 650 mg PO Q4H PRN PRN Reason: Pain Or Fever above 101 Stop: 05/20/17 17:24 Last Admin: 03/22/17 21:54 Dose: 650 mg Acetaminophen/Hydrocodone Bitart ([place] 5mg/325mg) 1 tab PO Q4H PRN PRN Reason: Pain (Severe) Stop: 05/20/17 17:24 Last Admin: 03/24/17 05:00 Dose: 1 tab Albuterol/Ipratropium (Duoneb Neb) 3 ml HHN [id number] [facility] Stop: 05/21/17 06:59 Last Admin: 03/25/17 10:43 Dose: 3 ml Budesonide (Pulmicort) 0.5 mg HHN BIDRT [facility] Stop: 05/21/17 06:59 Last Admin: 03/25/17 07:03 Dose: 0.5 mg Clonidine HCl (Kuzmfzxd-Hbj-9) 1 patch TD Sa [facility] Stop: 05/23/17 17:44 Dexamethasone Sodium Phosphate (Decadron) 4 mg IVP Q6HR [facility] Stop: 05/22/17 17:59 Last Admin: 03/25/17 11:55 Dose: 4 mg Docusate Sodium (Colace) 250 mg PO DAILY [facility] Stop: 05/21/17 08:59 Last Admin: 03/25/17 09:46 Dose: 250 mg Enalaprilat (Vasotec) 1.25 mg IVP Q6HR PRN PRN Reason: SBP >180 AND UP Stop: 05/22/17 08:29 Last Admin: 03/24/17 12:00 Dose: 1.25 mg Fentanyl (Duragesic 75 Mcg/Hr Tdm Patch) 1 patch TD Q72HR [facility] PRN Reason: Protocol Stop: 05/22/17 13:59 Last Admin: 03/23/17 16:04 Dose: 1 patch Ferrous Sulfate (Iron) 325 mg PO DAILY [facility] Stop: 05/21/17 08:59 Last Admin: 03/25/17 09:45 Dose: 325 mg Guaifenesin (Robitussin) 200 mg PO Q4HR PRN PRN Reason: Cough or Congestion Stop: 05/20/17 17:24 Hydromorphone HCl (Dilaudid) 0.5 mg IVP Q4HR PRN PRN Reason: Pain (Severe) Stop: 05/23/17 13:23 Last Admin: 03/25/17 11:55 Dose: 0.5 mg Cefepime HCl 1 gm/ Dextrose 50 mls @ 100 mls/hr IV Q12H [facility] Stop: 05/20/17 17:29 Last Admin: 03/25/17 05:36 Dose: 100 mls/hr Sodium Chloride (Nacl 0.9%) 1,000 mls @ 50 mls/hr IV .Q20H [facility] Stop: 05/22/17 11:16 Last Admin: 03/24/17 23:56 Dose: 50 mls/hr Fluconazole (Diflucan) 200 mg in 100 mls @ 100 mls/hr IV Q24HR [facility] Stop: 05/22/17 14:29 Last Infusion: 03/24/17 18:36 Dose: Infused Potassium Phosphate 20 mmole/ (Sodium Chloride) 256.6667 mls @ 40 mls/hr IV X1 ONE Stop: 03/25/17 18:52 Insulin Aspart (Novolog) 0 units SUBQ ACHS [facility] PRN Reason: Protocol Stop: 05/20/17 20:59 Last Admin: 03/25/17 12:09 Dose: Not Given Ipratropium [place] (Atrovent Neb 0.5mg/2.5ml) 0.5 mg IH Q2HRT PRN PRN Reason: Shortness of Breath or Wheeze Stop: 05/20/17 17:24 Ondansetron HCl (Zofran) 4 mg IV Q8H PRN PRN Reason: Nausea / Vomiting Stop: 05/20/17 17:24 Pantoprazole Sodium (Protonix) 40 mg IVP QDAC [facility] Stop: 05/22/17 08:59 Last Admin: 03/25/17 07:04 Dose: 40 mg Senna (Senna) 8.6 mg PO DAILY [facility] Stop: 05/21/17 08:59 Last Admin: 03/25/17 09:45 Dose: 8.6 mg General: congested, obese, edematous, appears older HEENT: NC/AT, PERRLA Neck: Supple Lungs: rales, ronchi Cardiovascular: RRR, Normal S1, Normal S2, without murmur Abdomen: soft, non-tender, non-distended, positive bowel sound Extremities: edema Neurological: lethargic, bedbound Internal Medicine Assmt/Plan - Assessment Assessment: Acute respiratory failure possible sepsis Lung CA, cholangioca hypercalcemia severe protein nancy maltnutrition dnr status - Plan Plan: decrease ivf will add megace swallow eval pulmonary toileting and inhaltion treatments follow up labs in am continue current plan of care - Plan Plan: will adjust pain control add catapress dw family on bipap
[2017-03-25] MEDS: Fluconazole 200mg/100mL 200 MG/100 ML BAG IV SCH (14:26)
[2017-03-25] MEDS: KCL 20mEq/100mL Premix 20 MEQ/100 ML PIGGYBACK IV SCH ×2 (16:20→22:02)
--- NOTE | 2017-03-25 23:46 | Progress Notes ---
DATE: 03/25/2017 PROBLEM LIST: 1. Acute on chronic respiratory failure, left-sided lung cancer. 2. Paraneoplastic syndrome. 3. Suspect obstructive sleep apnea syndrome. SYMPTOMS: Nil. The patient is agitated, restless, had to put in a BiPAP this morning with hypoxemia, currently distress. PHYSICAL EXAMINATION: VITAL SIGNS: Temperature is 97.6, blood pressure ____, saturation 95% on 40%. NECK: Veins not visualized. CHEST: Shows some noisy diminished air entry with occasional rhonchi. HEART: Regular. ABDOMEN: Soft, nontender. LABORATORY DATA: The patient's white count is 7000, hemoglobin 8.9 and the patient's ABG this morning, pCO2 is 36, pO2 is 51 and the patient's calcium is 13.6. ASSESSMENT: The patient clinically doing worse with a paraneoplastic syndrome, chronic obstructive pulmonary disease possibly metastatic lung disease. PLANS AND SUGGESTIONS: We will continue current supportive care. Discussed with the patient on care with the patient's daughter. We will reconsider code status, etc., later on and go from there. JOB# [id number]
[2017-03-26] MEDS: Dexamethasone Sodium Phos 4 mg/mL Vial IVP SCH ×4 (00:17→17:40)
[2017-03-26] MEDS: Sodium Chloride 0.9% 1,000 ML IV SCH (05:47)
[2017-03-26 06:00] LABS: % BASOPHILS 0.2 % (0.0-2.0); % EOSINOPHILS 0.1 % (0.0-5.0); % LYMPHOCYTES 6.6 % (20.0-50.0); % MONOCYTES 5.3 % (2.0-10.0); % NEUTROPHILS 87.8 % (40.0-80.0); HEMATOCRIT 28.2 % (41.0-60); HEMOGLOBIN 9.3 gm/dL (12-16); LYMPHOCYTE ABSOLUTE 0.6 Th/cmm (1.5-3.0); MEAN CELL VOLUME 81.5 fl (81-100); MEAN CORPUSCULAR HGB CONC 33.1 pg (28.0-36.0); MEAN PLATELET VOLUME 6.3 fl; MONOCYTE ABSOLUTE 0.5 Th/cmm (0.3-1.0); NEUTROPHILE ABSOLUTE 7.4 Th/cmm (1.8-8.0); PLATELET COUNT 212 Th/cmm (150-400); RED BLOOD COUNT 3.45 Mil/cmm (3.80-5.20); RED CELL DISTRIBUTION WIDTH 15.9 % (11.5-20.0); WHITE BLOOD COUNT 8.5 Th/cmm (4.8-10.8)
[2017-03-26 06:09] LABS: INR 1.14 (0.5-1.4)
[2017-03-26 06:17] LABS: ALB/GLOB RATIO 0.8 (1.0-1.8); ALBUMIN 2.7 gm/dL (3.7-5.3); ALKALINE PHOSPHATASE 130 U/L (34-104); ANION GAP 11.7 (7.0-16.0); BILIRUBIN,TOTAL 0.5 mg/dL (0.3-1.0); BUN - UREA NITROGEN 46 mg/dL (7-25); CHLORIDE 114 mEq/L (98-107); CREATININE - SERUM 1.1 mg/dL (0.6-1.2); GLUCOSE 134 mg/dL (70-105); POTASSIUM SERUM 3.7 mEq/L (3.5-5.1); SGOT 21 U/L (13-39); SGPT/ALT 9 U/L (7-52); SODIUM SERUM 146 mEq/L (136-145)
[2017-03-26] MEDS: INSULIN ASPART, RECOMBINANT 100 UNITS/ML SUBQ SCH ×4 (06:57→20:43)
[2017-03-26] MEDS ORDERED: Budesonide 0.5 Mg/2 mL Ud HHN ONE (07:02)
[2017-03-26] MEDS ORDERED: Albuterol/Ipratropium Neb 3 ML AERS HHN ONE (07:02)
[2017-03-26] MEDS: Albuterol/Ipratropium Neb 3 ML AERS HHN SCH ×4 (07:37→19:16)
[2017-03-26] MEDS: Budesonide 0.5 Mg/2 mL Ud HHN SCH ×2 (07:37→19:15)
[2017-03-26] MEDS: Ferrous Sulfate 325 MG TAB PO SCH (08:12)
--- NOTE | 2017-03-26 08:48 | Diagnostic Imaging Report ---
Portable chest x-ray HISTORY: Shortness of breath Compared with the prior exam of March 21, 2017, increasing density is noted in left lower hemithorax suggesting with pleural fluid. Underlying pulmonary parenchymal changes including pneumonia and/or atelectasis cannot be excluded. IMPRESSION: 1. Findings suggesting an increasing left pleural effusion. Underlying pulmonary parenchymal pathology including pneumonia and/or atelectasis cannot be excluded.
[2017-03-26] MEDS ORDERED: Sodium Chloride 0.9% 1,000 ML IV SCH (09:54)
--- NOTE | 2017-03-26 09:55 | General Progress Note ---
Subjective - Review of Systems Service Date: 03/26/17 Subjective: non communicative Objective - Results Result Diagrams: 03/26/17 05:25 03/26/17 05:25 Recent Labs: Laboratory Last Values WBC 8.5 Th/cmm (4.8-10.8) D 03/26/17 05:25 RBC 3.45 Mil/cmm (3.80-5.20) L 03/26/17 05:25 Hgb 9.3 gm/dL (12-16) L 03/26/17 05:25 Hct 28.2 % (41.0-60) L 03/26/17 05:25 MCV 81.5 fl (81-100) 03/26/17 05:25 MCH 27.0 pg (27.0-31.0) 03/26/17 05:25 MCHC Differential 33.1 pg (28.0-36.0) 03/26/17 05:25 RDW 15.9 % (11.5-20.0) 03/26/17 05:25 Plt Count 212 Th/cmm (150-400) 03/26/17 05:25 MPV 6.3 fl 03/26/17 05:25 Neutrophils % 87.8 % (40.0-80.0) H 03/26/17 05:25 Band Neutrophils % 9 % (0-10) 03/25/17 05:00 Lymphocytes % 6.6 % (20.0-50.0) L 03/26/17 05:25 Monocytes % 5.3 % (2.0-10.0) 03/26/17 05:25 Eosinophils % 0.1 % (0.0-5.0) 03/26/17 05:25 Basophils % 0.2 % (0.0-2.0) 03/26/17 05:25 Neutrophils (Manual) 73 % (40-80) 03/25/17 05:00 Lymphocytes 12 % (20-50) L 03/25/17 05:00 Monocytes 6 % (2-10) 03/25/17 05:00 Platelet Estimate ADEQUATE (NORMAL) 03/25/17 05:00 PT 12.0 SECONDS (9.5-11.5) H 03/26/17 05:25 INR 1.14 (0.5-1.4) 03/26/17 05:25 PTT (Actin FS) 19.8 SECONDS (26.0-38.0) L 03/26/17 05:25 Specimen Source Arterial 03/25/17 07:33 Sample Site LB 03/25/17 07:33 pH 7.47 (7.35-7.45) H 03/25/17 07:33 pCO2 36.0 mmHg (35.0-45.0) 03/25/17 07:33 pO2 51.0 mmHg (80.0-100.0) L 03/25/17 07:33 HCO3 26.7 mEq/L (20.0-26.0) H 03/25/17 07:33 Base Excess 2.6 mEq/L (-3.0-3.0) 03/25/17 07:33 O2 Saturation 88.0 % (92.0-100.0) L 03/25/17 07:33 Dennis Test YES 03/22/17 09:10 Vent Rate NA 03/22/17 09:10 Inspired O2 44 03/25/17 07:33 Tidal Volume NA 03/22/17 09:10 PEEP NA 03/22/17 09:10 Pressure (ins/psv/peep) NA 03/22/17 09:10 Critical Value PW 03/25/17 07:33 Sodium 146 mEq/L (136-145) H 03/26/17 05:25 Potassium 3.7 mEq/L (3.5-5.1) 03/26/17 05:25 Chloride 114 mEq/L (98-107) H 03/26/17 05:25 Carbon Dioxide 24.0 mEq/L (21.0-31.0) 03/26/17 05:25 Anion Gap 11.7 (7.0-16.0) 03/26/17 05:25 BUN 46 mg/dL (7-25) H 03/26/17 05:25 Creatinine 1.1 mg/dL (0.6-1.2) 03/26/17 05:25 Est GFR ( Amer) TNP 03/26/17 05:25 Est GFR (Non-Af Amer) TNP 03/26/17 05:25 BUN/Creatinine Ratio 41.8 03/26/17 05:25 Glucose 134 mg/dL (70-105) H 03/26/17 05:25 POC Glucose 139 MG/DL (70 - 105) H 03/26/17 06:54 Hemoglobin A1c % 6.1 % (4.0-6.0) H 03/22/17 05:20 Calcium 13.0 mg/dL (8.6-10.3) H 03/26/17 05:25 Phosphorus 3.1 mg/dL (2.5-5.0) 03/22/17 05:20 Magnesium 2.0 mg/dL (1.9-2.7) 03/26/17 05:25 Total Bilirubin 0.5 mg/dL (0.3-1.0) 03/26/17 05:25 Direct Bilirubin 0.10 mg/dL (0.0-0.2) 03/22/17 05:20 AST 21 U/L (13-39) 03/26/17 05:25 ALT 9 U/L (7-52) 03/26/17 05:25 Alkaline Phosphatase 130 U/L (34-104) H 03/26/17 05:25 Ammonia 51 umol/L (16-53) 03/26/17 05:25 B-Natriuretic Peptide 351.0 pg/mL (5.0-100.0) H 03/26/17 05:25 Total Protein 6.0 gm/dL (6.0-8.3) 03/26/17 05:25 Albumin 2.7 gm/dL (3.7-5.3) L 03/26/17 05:25 Globulin 3.3 gm/dL 03/26/17 05:25 Albumin/Globulin Ratio 0.8 (1.0-1.8) L 03/26/17 05:25 Lipase 14 U/L (11-82) 03/25/17 05:00 Vitamin B12 689 pg/mL (232-1245) 03/22/17 05:20 Folic Acid 6.4 ng/mL (>3.0) 03/22/17 05:20 TSH 2.14 uIU/ml (0.34-5.60) 03/22/17 05:20 PTH Intact 12 pg/mL (15-65) L 03/22/17 05:20 Urine Source [place] 03/22/17 03:20 Urine Color YELLOW 03/22/17 03:20 Urine Clarity CLEAR (CLEAR) 03/22/17 03:20 Urine pH 6.5 (4.6 - 8.0) 03/22/17 03:20 Ur Specific [place] 1.010 (1.005-1.030) 03/22/17 03:20 Urine Protein NEGATIVE mg/dL (NEGATIVE) 03/22/17 03:20 Urine Glucose (UA) NEGATIVE mg/dL (NEGATIVE) 03/22/17 03:20 Urine Ketones NEGATIVE mg/dL (NEGATIVE) 03/22/17 03:20 Urine Blood SMALL (NEGATIVE) H 03/22/17 03:20 Urine Nitrate NEGATIVE (NEGATIVE) 03/22/17 03:20 Urine Bilirubin NEGATIVE (NEGATIVE) 03/22/17 03:20 Urine Urobilinogen 0.2 E.U./dL (0.2 - 1.0) 03/22/17 03:20 Ur Leukocyte Esterase TRACE (NEGATIVE) H 03/22/17 03:20 Urine RBC 2-5 /hpf (0-5) 03/22/17 03:20 Urine WBC 2-5 /hpf (0-5) 03/22/17 03:20 Ur Epithelial Cells MODERATE /lpf (FEW) 03/22/17 03:20 Urine Bacteria FEW /hpf (NONE SEEN) 03/22/17 03:20 Urine Yeast MODERATE /hpf (NONE SEEN) H 03/22/17 03:20 - Physical Exam Vitals and I&O: Vital Signs Temp 97.2 F 03/26/17 04:00 Pulse 79 03/26/17 04:00 Resp 19 03/26/17 04:27 BP 152/80 03/26/17 04:00 Pulse Ox 97 03/26/17 04:27 Intake & Output 03/25/17 03/26/17 03/26/17 18:59 06:59 18:59 Intake Total 300 1050 Output Total 350 350 Balance -50 700 Weight (lbs) 63.503 kg 61.326 kg Intake: Intake, IV Amount 250 1050 Cefepime 1 gm In Dextrose 50 50 5% 50 ml @ 100 mls/hr IV Q12H [facility] Rx#:[id number] Fluconazole 200mg/100mL 100 200 mg In 100 ml @ 100 mls/hr IV Q24HR [facility] Rx#: [id number] KCL 20mEq/100mL Premix 20 100 meq In 100 ml @ 40 mls/ hr IV Q2H [facility] Rx#: [id number] Sodium Chloride 0.9% 1, 1000 000 ml @ 50 mls/hr IV . Q20H [facility] Rx#:[id number] Oral 50 Output: Urine 350 350 Other: # Bowel Movements 1 Active Medications: Current Medications Acetaminophen (Tylenol) 650 mg PO Q4H PRN PRN Reason: Pain Or Fever above 101 Stop: 05/20/17 17:24 Last Admin: 03/22/17 21:54 Dose: 650 mg Acetaminophen/Hydrocodone Bitart ([place] 5mg/325mg) 1 tab PO Q4H PRN PRN Reason: Pain (Severe) Stop: 05/20/17 17:24 Last Admin: 03/24/17 05:00 Dose: 1 tab Albuterol/Ipratropium (Duoneb Neb) 3 ml HHN [id number] [facility] Stop: 05/21/17 06:59 Last Admin: 03/26/17 07:37 Dose: 3 ml Budesonide (Pulmicort) 0.5 mg HHN BIDRT [facility] Stop: 05/21/17 06:59 Last Admin: 03/26/17 07:37 Dose: 0.5 mg Clonidine HCl (Qhbkiscy-Jre-4) 1 patch TD Sa [facility] Stop: 05/23/17 17:44 Dexamethasone Sodium Phosphate (Decadron) 4 mg IVP Q6HR [facility] Stop: 05/22/17 17:59 Last Admin: 03/26/17 05:43 Dose: 4 mg Docusate Sodium (Colace) 250 mg PO DAILY [facility] Stop: 05/21/17 08:59 Last Admin: 03/26/17 08:12 Dose: Not Given Enalaprilat (Vasotec) 1.25 mg IVP Q6HR PRN PRN Reason: SBP >180 AND UP Stop: 05/22/17 08:29 Last Admin: 03/26/17 00:15 Dose: 1.25 mg Fentanyl (Duragesic 75 Mcg/Hr Tdm Patch) 1 patch TD Q72HR [facility] PRN Reason: Protocol Stop: 05/22/17 13:59 Last Admin: 03/23/17 16:04 Dose: 1 patch Ferrous Sulfate (Iron) 325 mg PO DAILY [facility] Stop: 05/21/17 08:59 Last Admin: 03/26/17 08:12 Dose: Not Given Guaifenesin (Robitussin) 200 mg PO Q4HR PRN PRN Reason: Cough or Congestion Stop: 05/20/17 17:24 Hydromorphone HCl (Dilaudid) 0.5 mg IVP Q4HR PRN PRN Reason: Pain (Severe) Stop: 05/23/17 13:23 Last Admin: 03/25/17 19:39 Dose: 0.5 mg Cefepime HCl 1 gm/ Dextrose 50 mls @ 100 mls/hr IV Q12H [facility] Stop: 05/20/17 17:29 Last Infusion: 03/26/17 06:12 Dose: Infused Sodium Chloride (Nacl 0.9%) 1,000 mls @ 50 mls/hr IV .Q20H [facility] Stop: 05/22/17 11:16 Last Admin: 03/26/17 05:47 Dose: 50 mls/hr Fluconazole (Diflucan) 200 mg in 100 mls @ 100 mls/hr IV Q24HR [facility] Stop: 05/22/17 14:29 Last Infusion: 03/25/17 15:33 Dose: Infused Insulin Aspart (Novolog) 0 units SUBQ ACHS [facility] PRN Reason: Protocol Stop: 05/20/17 20:59 Last Admin: 03/26/17 06:57 Dose: Not Given Ipratropium [place] (Atrovent Neb 0.5mg/2.5ml) 0.5 mg IH Q2HRT PRN PRN Reason: Shortness of Breath or Wheeze Stop: 05/20/17 17:24 Ondansetron HCl (Zofran) 4 mg IV Q8H PRN PRN Reason: Nausea / Vomiting Stop: 05/20/17 17:24 Pantoprazole Sodium (Protonix) 40 mg IVP QDAC [facility] Stop: 05/22/17 08:59 Last Admin: 03/26/17 06:56 Dose: 40 mg Senna (Senna) 8.6 mg PO DAILY [facility] Stop: 05/21/17 08:59 Last Admin: 03/26/17 08:12 Dose: Not Given General: Alert (on BIPAP), Other HEENT: Atraumatic Neck: Supple Lungs: Clear to auscultation Abdomen: Soft Neurological: Other (paraplegic) Assessment/Plan - Assessment Assessment: * Metastatic cholangiocarcinoma * s/p cord compression * malignant hypercalcemia improving * ALOC secondary to hypercalcemia * Respiratory failure on BIPAP S/P PAMIDRONATE Continue DECADRON, CONTINUE HYDRATION poor prognosis
--- NOTE | 2017-03-26 11:12 | Internal Medicine Prog Note ---
Internal Medicine Subjective - Subjective Service Date: 03/26/17 (patient awake, on bipap, daughter at bedside, explained current treatment and goals, understood and verbalized.) Patient is:: awake, verbal, non-interactive, eyes closed, in bed, confused Patient Complaints of:: congestion Per staff patient has:: poor appetite, poor oral intake, noncompliant, confused Internal Medicine Objective - Results Result Diagrams: 03/26/17 05:25 03/26/17 05:25 Recent Labs: Laboratory Last Values WBC 8.5 Th/cmm (4.8-10.8) D 03/26/17 05:25 RBC 3.45 Mil/cmm (3.80-5.20) L 03/26/17 05:25 Hgb 9.3 gm/dL (12-16) L 03/26/17 05:25 Hct 28.2 % (41.0-60) L 03/26/17 05:25 MCV 81.5 fl (81-100) 03/26/17 05:25 MCH 27.0 pg (27.0-31.0) 03/26/17 05:25 MCHC Differential 33.1 pg (28.0-36.0) 03/26/17 05:25 RDW 15.9 % (11.5-20.0) 03/26/17 05:25 Plt Count 212 Th/cmm (150-400) 03/26/17 05:25 MPV 6.3 fl 03/26/17 05:25 Neutrophils % 87.8 % (40.0-80.0) H 03/26/17 05:25 Band Neutrophils % 9 % (0-10) 03/25/17 05:00 Lymphocytes % 6.6 % (20.0-50.0) L 03/26/17 05:25 Monocytes % 5.3 % (2.0-10.0) 03/26/17 05:25 Eosinophils % 0.1 % (0.0-5.0) 03/26/17 05:25 Basophils % 0.2 % (0.0-2.0) 03/26/17 05:25 Neutrophils (Manual) 73 % (40-80) 03/25/17 05:00 Lymphocytes 12 % (20-50) L 03/25/17 05:00 Monocytes 6 % (2-10) 03/25/17 05:00 Platelet Estimate ADEQUATE (NORMAL) 03/25/17 05:00 PT 12.0 SECONDS (9.5-11.5) H 03/26/17 05:25 INR 1.14 (0.5-1.4) 03/26/17 05:25 PTT (Actin FS) 19.8 SECONDS (26.0-38.0) L 03/26/17 05:25 Specimen Source Arterial 03/25/17 07:33 Sample Site LB 03/25/17 07:33 pH 7.47 (7.35-7.45) H 03/25/17 07:33 pCO2 36.0 mmHg (35.0-45.0) 03/25/17 07:33 pO2 51.0 mmHg (80.0-100.0) L 03/25/17 07:33 HCO3 26.7 mEq/L (20.0-26.0) H 03/25/17 07:33 Base Excess 2.6 mEq/L (-3.0-3.0) 03/25/17 07:33 O2 Saturation 88.0 % (92.0-100.0) L 03/25/17 07:33 Dennis Test YES 03/22/17 09:10 Vent Rate NA 03/22/17 09:10 Inspired O2 44 03/25/17 07:33 Tidal Volume NA 03/22/17 09:10 PEEP NA 03/22/17 09:10 Pressure (ins/psv/peep) NA 03/22/17 09:10 Critical Value PW 03/25/17 07:33 Sodium 146 mEq/L (136-145) H 03/26/17 05:25 Potassium 3.7 mEq/L (3.5-5.1) 03/26/17 05:25 Chloride 114 mEq/L (98-107) H 03/26/17 05:25 Carbon Dioxide 24.0 mEq/L (21.0-31.0) 03/26/17 05:25 Anion Gap 11.7 (7.0-16.0) 03/26/17 05:25 BUN 46 mg/dL (7-25) H 03/26/17 05:25 Creatinine 1.1 mg/dL (0.6-1.2) 03/26/17 05:25 Est GFR ( Amer) TNP 03/26/17 05:25 Est GFR (Non-Af Amer) TNP 03/26/17 05:25 BUN/Creatinine Ratio 41.8 03/26/17 05:25 Glucose 134 mg/dL (70-105) H 03/26/17 05:25 POC Glucose 139 MG/DL (70 - 105) H 03/26/17 06:54 Hemoglobin A1c % 6.1 % (4.0-6.0) H 03/22/17 05:20 Calcium 13.0 mg/dL (8.6-10.3) H 03/26/17 05:25 Phosphorus 3.1 mg/dL (2.5-5.0) 03/22/17 05:20 Magnesium 2.0 mg/dL (1.9-2.7) 03/26/17 05:25 Total Bilirubin 0.5 mg/dL (0.3-1.0) 03/26/17 05:25 Direct Bilirubin 0.10 mg/dL (0.0-0.2) 03/22/17 05:20 AST 21 U/L (13-39) 03/26/17 05:25 ALT 9 U/L (7-52) 03/26/17 05:25 Alkaline Phosphatase 130 U/L (34-104) H 03/26/17 05:25 Ammonia 51 umol/L (16-53) 03/26/17 05:25 B-Natriuretic Peptide 351.0 pg/mL (5.0-100.0) H 03/26/17 05:25 Total Protein 6.0 gm/dL (6.0-8.3) 03/26/17 05:25 Albumin 2.7 gm/dL (3.7-5.3) L 03/26/17 05:25 Globulin 3.3 gm/dL 03/26/17 05:25 Albumin/Globulin Ratio 0.8 (1.0-1.8) L 03/26/17 05:25 Lipase 14 U/L (11-82) 03/25/17 05:00 Vitamin B12 689 pg/mL (232-1245) 03/22/17 05:20 Folic Acid 6.4 ng/mL (>3.0) 03/22/17 05:20 TSH 2.14 uIU/ml (0.34-5.60) 03/22/17 05:20 PTH Intact 12 pg/mL (15-65) L 03/22/17 05:20 Urine Source [place] 03/22/17 03:20 Urine Color YELLOW 03/22/17 03:20 Urine Clarity CLEAR (CLEAR) 03/22/17 03:20 Urine pH 6.5 (4.6 - 8.0) 03/22/17 03:20 Ur Specific [place] 1.010 (1.005-1.030) 03/22/17 03:20 Urine Protein NEGATIVE mg/dL (NEGATIVE) 03/22/17 03:20 Urine Glucose (UA) NEGATIVE mg/dL (NEGATIVE) 03/22/17 03:20 Urine Ketones NEGATIVE mg/dL (NEGATIVE) 03/22/17 03:20 Urine Blood SMALL (NEGATIVE) H 03/22/17 03:20 Urine Nitrate NEGATIVE (NEGATIVE) 03/22/17 03:20 Urine Bilirubin NEGATIVE (NEGATIVE) 03/22/17 03:20 Urine Urobilinogen 0.2 E.U./dL (0.2 - 1.0) 03/22/17 03:20 Ur Leukocyte Esterase TRACE (NEGATIVE) H 03/22/17 03:20 Urine RBC 2-5 /hpf (0-5) 03/22/17 03:20 Urine WBC 2-5 /hpf (0-5) 03/22/17 03:20 Ur Epithelial Cells MODERATE /lpf (FEW) 03/22/17 03:20 Urine Bacteria FEW /hpf (NONE SEEN) 03/22/17 03:20 Urine Yeast MODERATE /hpf (NONE SEEN) H 03/22/17 03:20 - Physical Exam Vitals and I&O: Vital Signs Temp 97.2 F 03/26/17 04:00 Pulse 79 03/26/17 04:00 Resp 19 03/26/17 04:27 BP 152/80 03/26/17 04:00 Pulse Ox 97 03/26/17 04:27 Intake & Output 03/25/17 03/26/17 03/26/17 18:59 06:59 18:59 Intake Total 300 1050 Output Total 350 350 Balance -50 700 Weight (lbs) 140 lb 135 lb 3.2 oz Intake: Intake, IV Amount 250 1050 Cefepime 1 gm In Dextrose 50 50 5% 50 ml @ 100 mls/hr IV Q12H [facility] Rx#:[id number] Fluconazole 200mg/100mL 100 200 mg In 100 ml @ 100 mls/hr IV Q24HR [facility] Rx#: [id number] KCL 20mEq/100mL Premix 20 100 meq In 100 ml @ 40 mls/ hr IV Q2H [facility] Rx#: [id number] Sodium Chloride 0.9% 1, 1000 000 ml @ 50 mls/hr IV . Q20H [facility] Rx#:[id number] Oral 50 Output: Urine 350 350 Other: # Bowel Movements 1 Active Medications: Current Medications Acetaminophen (Tylenol) 650 mg PO Q4H PRN PRN Reason: Pain Or Fever above 101 Stop: 05/20/17 17:24 Last Admin: 03/22/17 21:54 Dose: 650 mg Acetaminophen/Hydrocodone Bitart ([place] 5mg/325mg) 1 tab PO Q4H PRN PRN Reason: Pain (Severe) Stop: 05/20/17 17:24 Last Admin: 03/24/17 05:00 Dose: 1 tab Albuterol/Ipratropium (Duoneb Neb) 3 ml HHN [id number] [facility] Stop: 05/21/17 06:59 Last Admin: 03/26/17 07:37 Dose: 3 ml Budesonide (Pulmicort) 0.5 mg HHN BIDRT [facility] Stop: 05/21/17 06:59 Last Admin: 03/26/17 07:37 Dose: 0.5 mg Clonidine HCl ([id number]-Xfu-1) 1 patch TD Sa [facility] Stop: 05/23/17 17:44 Dexamethasone Sodium Phosphate (Decadron) 4 mg IVP Q6HR [facility] Stop: 05/22/17 17:59 Last Admin: 03/26/17 05:43 Dose: 4 mg Docusate Sodium (Colace) 250 mg PO DAILY [facility] Stop: 05/21/17 08:59 Last Admin: 03/26/17 08:12 Dose: Not Given Enalaprilat (Vasotec) 1.25 mg IVP Q6HR PRN PRN Reason: SBP >180 AND UP Stop: 05/22/17 08:29 Last Admin: 03/26/17 00:15 Dose: 1.25 mg Fentanyl (Duragesic 75 Mcg/Hr Tdm Patch) 1 patch TD Q72HR [facility] PRN Reason: Protocol Stop: 05/22/17 13:59 Last Admin: 03/23/17 16:04 Dose: 1 patch Ferrous Sulfate (Iron) 325 mg PO DAILY [facility] Stop: 05/21/17 08:59 Last Admin: 03/26/17 08:12 Dose: Not Given Guaifenesin (Robitussin) 200 mg PO Q4HR PRN PRN Reason: Cough or Congestion Stop: 05/20/17 17:24 Hydromorphone HCl (Dilaudid) 0.5 mg IVP Q4HR PRN PRN Reason: Pain (Severe) Stop: 05/23/17 13:23 Last Admin: 03/25/17 19:39 Dose: 0.5 mg Cefepime HCl 1 gm/ Dextrose 50 mls @ 100 mls/hr IV Q12H [facility] Stop: 05/20/17 17:29 Last Infusion: 03/26/17 06:12 Dose: Infused Fluconazole (Diflucan) 200 mg in 100 mls @ 100 mls/hr IV Q24HR [facility] Stop: 05/22/17 14:29 Last Infusion: 03/25/17 15:33 Dose: Infused Sodium Chloride (Nacl 0.9%) 1,000 mls @ 100 mls/hr IV .Q10H [facility] Stop: 05/22/17 11:16 Insulin Aspart (Novolog) 0 units SUBQ ACHS [facility] PRN Reason: Protocol Stop: 05/20/17 20:59 Last Admin: 03/26/17 06:57 Dose: Not Given Ipratropium [place] (Atrovent Neb 0.5mg/2.5ml) 0.5 mg IH Q2HRT PRN PRN Reason: Shortness of Breath or Wheeze Stop: 05/20/17 17:24 Ondansetron HCl (Zofran) 4 mg IV Q8H PRN PRN Reason: Nausea / Vomiting Stop: 05/20/17 17:24 Pantoprazole Sodium (Protonix) 40 mg IVP QDAC [facility] Stop: 05/22/17 08:59 Last Admin: 03/26/17 06:56 Dose: 40 mg Senna (Senna) 8.6 mg PO DAILY [facility] Stop: 05/21/17 08:59 Last Admin: 03/26/17 08:12 Dose: Not Given General: congested, obese, edematous, appears older HEENT: NC/AT, PERRLA Neck: Supple Lungs: ronchi Cardiovascular: RRR, Normal S1, Normal S2, without murmur Abdomen: soft, non-tender, non-distended, positive bowel sound Extremities: edema Neurological: lethargic, bedbound Internal Medicine Assmt/Plan - Assessment Assessment: Acute respiratory failure possible sepsis Lung CA hypercalcemia severe protein nancy maltnutrition dnr status - Plan Plan: switch ivf to d5 1/2 ns pulmonary toileting and inhaltion treatments follow up labs in am continue current plan of care
--- NOTE | 2017-03-26 13:04 | GI Progress Note ---
Subjective - Review of Systems Subjective: NO EVENTS ON BIPAP Objective - Results Result Diagrams: 03/26/17 05:25 03/26/17 05:25 Recent Labs: Laboratory Last Values WBC 8.5 Th/cmm (4.8-10.8) D 03/26/17 05:25 RBC 3.45 Mil/cmm (3.80-5.20) L 03/26/17 05:25 Hgb 9.3 gm/dL (12-16) L 03/26/17 05:25 Hct 28.2 % (41.0-60) L 03/26/17 05:25 MCV 81.5 fl (81-100) 03/26/17 05:25 MCH 27.0 pg (27.0-31.0) 03/26/17 05:25 MCHC Differential 33.1 pg (28.0-36.0) 03/26/17 05:25 RDW 15.9 % (11.5-20.0) 03/26/17 05:25 Plt Count 212 Th/cmm (150-400) 03/26/17 05:25 MPV 6.3 fl 03/26/17 05:25 Neutrophils % 87.8 % (40.0-80.0) H 03/26/17 05:25 Band Neutrophils % 9 % (0-10) 03/25/17 05:00 Lymphocytes % 6.6 % (20.0-50.0) L 03/26/17 05:25 Monocytes % 5.3 % (2.0-10.0) 03/26/17 05:25 Eosinophils % 0.1 % (0.0-5.0) 03/26/17 05:25 Basophils % 0.2 % (0.0-2.0) 03/26/17 05:25 Neutrophils (Manual) 73 % (40-80) 03/25/17 05:00 Lymphocytes 12 % (20-50) L 03/25/17 05:00 Monocytes 6 % (2-10) 03/25/17 05:00 Platelet Estimate ADEQUATE (NORMAL) 03/25/17 05:00 PT 12.0 SECONDS (9.5-11.5) H 03/26/17 05:25 INR 1.14 (0.5-1.4) 03/26/17 05:25 PTT (Actin FS) 19.8 SECONDS (26.0-38.0) L 03/26/17 05:25 Specimen Source Arterial 03/25/17 07:33 Sample Site LB 03/25/17 07:33 pH 7.47 (7.35-7.45) H 03/25/17 07:33 pCO2 36.0 mmHg (35.0-45.0) 03/25/17 07:33 pO2 51.0 mmHg (80.0-100.0) L 03/25/17 07:33 HCO3 26.7 mEq/L (20.0-26.0) H 03/25/17 07:33 Base Excess 2.6 mEq/L (-3.0-3.0) 03/25/17 07:33 O2 Saturation 88.0 % (92.0-100.0) L 03/25/17 07:33 Dennis Test YES 03/22/17 09:10 Vent Rate NA 03/22/17 09:10 Inspired O2 44 03/25/17 07:33 Tidal Volume NA 03/22/17 09:10 PEEP NA 03/22/17 09:10 Pressure (ins/psv/peep) NA 03/22/17 09:10 Critical Value PW 03/25/17 07:33 Sodium 146 mEq/L (136-145) H 03/26/17 05:25 Potassium 3.7 mEq/L (3.5-5.1) 03/26/17 05:25 Chloride 114 mEq/L (98-107) H 03/26/17 05:25 Carbon Dioxide 24.0 mEq/L (21.0-31.0) 03/26/17 05:25 Anion Gap 11.7 (7.0-16.0) 03/26/17 05:25 BUN 46 mg/dL (7-25) H 03/26/17 05:25 Creatinine 1.1 mg/dL (0.6-1.2) 03/26/17 05:25 Est GFR ( Amer) TNP 03/26/17 05:25 Est GFR (Non-Af Amer) TNP 03/26/17 05:25 BUN/Creatinine Ratio 41.8 03/26/17 05:25 Glucose 134 mg/dL (70-105) H 03/26/17 05:25 POC Glucose 139 MG/DL (70 - 105) H 03/26/17 06:54 Hemoglobin A1c % 6.1 % (4.0-6.0) H 03/22/17 05:20 Calcium 13.0 mg/dL (8.6-10.3) H 03/26/17 05:25 Phosphorus 3.1 mg/dL (2.5-5.0) 03/22/17 05:20 Magnesium 2.0 mg/dL (1.9-2.7) 03/26/17 05:25 Total Bilirubin 0.5 mg/dL (0.3-1.0) 03/26/17 05:25 Direct Bilirubin 0.10 mg/dL (0.0-0.2) 03/22/17 05:20 AST 21 U/L (13-39) 03/26/17 05:25 ALT 9 U/L (7-52) 03/26/17 05:25 Alkaline Phosphatase 130 U/L (34-104) H 03/26/17 05:25 Ammonia 51 umol/L (16-53) 03/26/17 05:25 B-Natriuretic Peptide 351.0 pg/mL (5.0-100.0) H 03/26/17 05:25 Total Protein 6.0 gm/dL (6.0-8.3) 03/26/17 05:25 Albumin 2.7 gm/dL (3.7-5.3) L 03/26/17 05:25 Globulin 3.3 gm/dL 03/26/17 05:25 Albumin/Globulin Ratio 0.8 (1.0-1.8) L 03/26/17 05:25 Lipase 14 U/L (11-82) 03/25/17 05:00 Vitamin B12 689 pg/mL (232-1245) 03/22/17 05:20 Folic Acid 6.4 ng/mL (>3.0) 03/22/17 05:20 TSH 2.14 uIU/ml (0.34-5.60) 03/22/17 05:20 PTH Intact 12 pg/mL (15-65) L 03/22/17 05:20 Urine Source [place] 03/22/17 03:20 Urine Color YELLOW 03/22/17 03:20 Urine Clarity CLEAR (CLEAR) 03/22/17 03:20 Urine pH 6.5 (4.6 - 8.0) 03/22/17 03:20 Ur Specific [place] 1.010 (1.005-1.030) 03/22/17 03:20 Urine Protein NEGATIVE mg/dL (NEGATIVE) 03/22/17 03:20 Urine Glucose (UA) NEGATIVE mg/dL (NEGATIVE) 03/22/17 03:20 Urine Ketones NEGATIVE mg/dL (NEGATIVE) 03/22/17 03:20 Urine Blood SMALL (NEGATIVE) H 03/22/17 03:20 Urine Nitrate NEGATIVE (NEGATIVE) 03/22/17 03:20 Urine Bilirubin NEGATIVE (NEGATIVE) 03/22/17 03:20 Urine Urobilinogen 0.2 E.U./dL (0.2 - 1.0) 03/22/17 03:20 Ur Leukocyte Esterase TRACE (NEGATIVE) H 03/22/17 03:20 Urine RBC 2-5 /hpf (0-5) 03/22/17 03:20 Urine WBC 2-5 /hpf (0-5) 03/22/17 03:20 Ur Epithelial Cells MODERATE /lpf (FEW) 03/22/17 03:20 Urine Bacteria FEW /hpf (NONE SEEN) 03/22/17 03:20 Urine Yeast MODERATE /hpf (NONE SEEN) H 03/22/17 03:20 - Physical Exam Vitals and I&O: Vital Signs Temp 97.2 F 03/26/17 04:00 Pulse 79 03/26/17 04:00 Resp 19 03/26/17 04:27 BP 152/80 03/26/17 04:00 Pulse Ox 97 03/26/17 04:27 Intake & Output 03/25/17 03/26/17 03/26/17 18:59 06:59 18:59 Intake Total 300 1050 Output Total 350 350 Balance -50 700 Weight (lbs) 63.503 kg 61.326 kg Intake: Intake, IV Amount 250 1050 Cefepime 1 gm In Dextrose 50 50 5% 50 ml @ 100 mls/hr IV Q12H [facility] Rx#:[id number] Fluconazole 200mg/100mL 100 200 mg In 100 ml @ 100 mls/hr IV Q24HR [facility] Rx#: [id number] KCL 20mEq/100mL Premix 20 100 meq In 100 ml @ 40 mls/ hr IV Q2H [facility] Rx#: [id number] Sodium Chloride 0.9% 1, 1000 000 ml @ 50 mls/hr IV . Q20H [facility] Rx#:[id number] Oral 50 Output: Urine 350 350 Other: # Bowel Movements 1 Active Medications: Current Medications Acetaminophen (Tylenol) 650 mg PO Q4H PRN PRN Reason: Pain Or Fever above 101 Stop: 05/20/17 17:24 Last Admin: 03/22/17 21:54 Dose: 650 mg Acetaminophen/Hydrocodone Bitart ([place] 5mg/325mg) 1 tab PO Q4H PRN PRN Reason: Pain (Severe) Stop: 05/20/17 17:24 Last Admin: 03/24/17 05:00 Dose: 1 tab Albuterol/Ipratropium (Duoneb Neb) 3 ml HHN [id number] [facility] Stop: 05/21/17 06:59 Last Admin: 03/26/17 12:03 Dose: 3 ml Budesonide (Pulmicort) 0.5 mg HHN BIDRT [facility] Stop: 05/21/17 06:59 Last Admin: 03/26/17 07:37 Dose: 0.5 mg Clonidine HCl (Nztsmkcm-Dir-2) 1 patch TD Sa [facility] Stop: 05/23/17 17:44 Dexamethasone Sodium Phosphate (Decadron) 4 mg IVP Q6HR [facility] Stop: 05/22/17 17:59 Last Admin: 03/26/17 05:43 Dose: 4 mg Docusate Sodium (Colace) 250 mg PO DAILY [facility] Stop: 05/21/17 08:59 Last Admin: 03/26/17 08:12 Dose: Not Given Enalaprilat (Vasotec) 1.25 mg IVP Q6HR PRN PRN Reason: SBP >180 AND UP Stop: 05/22/17 08:29 Last Admin: 03/26/17 00:15 Dose: 1.25 mg Fentanyl (Duragesic 75 Mcg/Hr Tdm Patch) 1 patch TD Q72HR [facility] PRN Reason: Protocol Stop: 05/22/17 13:59 Last Admin: 03/23/17 16:04 Dose: 1 patch Ferrous Sulfate (Iron) 325 mg PO DAILY [facility] Stop: 05/21/17 08:59 Last Admin: 03/26/17 08:12 Dose: Not Given Guaifenesin (Robitussin) 200 mg PO Q4HR PRN PRN Reason: Cough or Congestion Stop: 05/20/17 17:24 Hydromorphone HCl (Dilaudid) 0.5 mg IVP Q4HR PRN PRN Reason: Pain (Severe) Stop: 05/23/17 13:23 Last Admin: 03/25/17 19:39 Dose: 0.5 mg Cefepime HCl 1 gm/ Dextrose 50 mls @ 100 mls/hr IV Q12H [facility] Stop: 05/20/17 17:29 Last Infusion: 03/26/17 06:12 Dose: Infused Fluconazole (Diflucan) 200 mg in 100 mls @ 100 mls/hr IV Q24HR [facility] Stop: 05/22/17 14:29 Last Infusion: 03/25/17 15:33 Dose: Infused Sodium Chloride (Nacl 0.9%) 1,000 mls @ 100 mls/hr IV .Q10H [facility] Stop: 05/22/17 11:16 Insulin Aspart (Novolog) 0 units SUBQ ACHS [facility] PRN Reason: Protocol Stop: 05/20/17 20:59 Last Admin: 03/26/17 06:57 Dose: Not Given Ipratropium [place] (Atrovent Neb 0.5mg/2.5ml) 0.5 mg IH Q2HRT PRN PRN Reason: Shortness of Breath or Wheeze Stop: 05/20/17 17:24 Ondansetron HCl (Zofran) 4 mg IV Q8H PRN PRN Reason: Nausea / Vomiting Stop: 05/20/17 17:24 Pantoprazole Sodium (Protonix) 40 mg IVP QDAC [facility] Stop: 05/22/17 08:59 Last Admin: 03/26/17 06:56 Dose: 40 mg Senna (Senna) 8.6 mg PO DAILY [facility] Stop: 05/21/17 08:59 Last Admin: 03/26/17 08:12 Dose: Not Given General: Alert (on BIPAP), Other HEENT: Atraumatic Neck: Supple Lungs: Clear to auscultation Abdomen: Soft Neurological: Other (paraplegic) Assessment/Plan - Assessment Assessment: 76 YO FEMALE WITH ANOREXIA AND DYSPHAGIA PEG WAS CONSIDERED BUT PT IS ON BIPAP 1.CONT SUPP CARE 2.CONSIDER NGT VS TPN 3.PEG WHEN PT IMPROVED OR GETS INTUABTED 4.D/W FAMILY
[2017-03-26] MEDS ORDERED: D5-0.45NS 1,000 ML IV ONE (13:30)
[2017-03-26] MEDS: Fluconazole 200mg/100mL 200 MG/100 ML BAG IV SCH (13:58)
[2017-03-26] MEDS: fentaNYL 75 mcg/hr Tdm Patch TD SCH (15:37)
[2017-03-26] MEDS: HYDROmorphone 1 mg/mL 1mL Syr IVP PRN (18:51)
--- NOTE | 2017-03-26 22:09 | Progress Notes ---
DATE: 03/26/2017 PROBLEM LIST: 1. Acute respiratory failure. 2. Chronic obstructive pulmonary disease. 3. 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 SYMPTOMS: The patient is currently on BiPAP, in no respiratory distress. PHYSICAL EXAMINATION: VITAL SIGNS: Temperature is 97.6, blood pressure is 141/81, saturation 97 on 40% of oxygen. GENERAL: The patient is sleeping, though barely opens eyes. No respiratory distress, etc. NECK: Veins not visualized. CHEST: Shows diminished air entry with occasional rhonchi. HEART: Regular. ABDOMEN: Soft, nontender. EXTREMITIES: Shows no peripheral edema. LABORATORY DATA: The patient's calcium is still 13. Sodium is 146, chloride is 114. ASSESSMENT: The patient is clinically status quo. PLANS AND SUGGESTIONS: We will continue steroid, continue saline, continue Lasix. Continue rest of the treatment. Care and plan discussed with patient's daughter at length yesterday including today and consideration for DNR is to be ____ and go from there. JOB# [id number]
[2017-03-27 16:13] LABS: FOLIC ACID 5.2 ng/mL (>3.0)
--- NOTE | 2017-04-23 01:27 | Discharge Summary ---
DATE OF DISCHARGE: 03/27/2017 DISCHARGE DIAGNOSES: Acute respiratory failure, possible sepsis, lung cancer, hypercalcemia, severe protein-calorie malnutrition and anemia. HISTORY OF PRESENT ILLNESS: A 76-year-old female who is a alf resident with a 4-day history of cough, congestion, anorexia for 4 days. The patient had a low-grade fever of 100.3. The patient was recently hospitalized in February for pneumonia. 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 PHYSICAL EXAMINATION: GENERAL: The patient appears chronically ill, awake, alert, in no apparent distress. VITAL SIGNS: Stable. HEENT: Head, normocephalic, atraumatic. NECK: Supple. No mass. LUNGS: Clear bilaterally. HEART: Regular rate and rhythm. ABDOMEN: Soft, nontender. HOSPITAL COURSE: During the hospital stay, the patient was admitted to the telemetry unit. The patient had a Pulmonology as well as Oncology consultation as well. The patient was kept on IV fluids for hydration as well as IV antibiotics, Maxipime. The patient was on BiPAP due to patient's CO2 being elevated and the patient's oxygen level. The patient had a CT of the head done and it was negative for any active disease. The patient also had a chest x-ray done. Impression was underlying pulmonary parenchymal pathology including pneumonia. Due to this, the patient need the IV antibiotic. The patient was discharged to [facility]. CONDITION UPON DISCHARGE: Fair. DISPOSITION: [facility]. [facility]# [id number]
== END 2017-03-26 22:45 | DRG 871 ==
LOC: ER 13:19 → TELE 18:08
PROVIDERS: ADMIT Internal Medicine; ATTEND Internal Medicine
PROC: 5A09457 Assistance with Respiratory Ventilation, 24-96 Consecutive Hours, Continuous Positive Airway Pressure (ICD-10-PCS; principal; 2017-03-21)
PROC: 5A09457 Assistance with Respiratory Ventilation, 24-96 Consecutive Hours, Continuous Positive Airway Pressure (ICD-10-PCS; 2017-03-25)
DX: A41.9 Sepsis, unspecified organism (principal); J96.00 Acute respiratory failure, unspecified whether with hypoxia or hypercapnia; E43 Unspecified severe protein-calorie malnutrition; C78.00 Secondary malignant neoplasm of unspecified lung; C79.51 Secondary malignant neoplasm of bone; G82.20 Paraplegia, unspecified; C24.0 Malignant neoplasm of extrahepatic bile duct; E83.52 Hypercalcemia; D64.9 Anemia, unspecified; R13.10 Dysphagia, unspecified; Z66 Do not resuscitate; J44.9 Chronic obstructive pulmonary disease, unspecified; M06.9 Rheumatoid arthritis, unspecified; E87.6 Hypokalemia; Z88.6 Allergy status to analgesic agent; Z88.0 Allergy status to penicillin; Z87.01 Personal history of pneumonia (recurrent); Z82.49 Family history of ischemic heart disease and other diseases of the circulatory system; Z87.891 Personal history of nicotine dependence; R62.7 Adult failure to thrive
CPT/HCPCS: 36415-UA; 36600-90; 70450-TC; 71045-TC; 71250-TC; 80048-TC; 80053-TC; 80076-TC; 81001-TC; 82140-TC; 82607-90; 82746-90; 82803-TC; 82948-90; 83036-90; 83690-TC; 83735-TC; 83880-TC; 83970-90; 84100-TC; 84443-TC; 84479-90; 85007-TC; 85025-TC; 85027-TC; 85610-TC; 85730-TC; 87070; 90799; 94660; 94760; C9113; J0692; J1100; J1170; J1450; J1650; J1815; J1940; J1956; J2001; J2430; J3475; J3480; J7030; Z7610